=== PATIENT | male | born 1945 | race Caucasian/White ===

== ENCOUNTER → 2017-04-22 | Outpatient (CLI) | payer MEDICARE ==
[2017-04-22 10:41] LABS: ALBUMIN 3.9 GM/DL (3.2-5.2); ALBUMIN/GLOBULIN RATIO 1.18 (1.00-1.93); BILIRUBIN,TOTAL 0.5 MG/DL (0.2-1.0); CREATININE FOR GFR 1.32 MG/DL (0.70-1.30); GLOMERULAR FILTRATION RATE 57.3 (>49); TOTAL PROTEIN 7.2 GM/DL (6.4-8.2)
== END ==
LOC: M LAB 09:24
PROVIDERS: ATTEND Emergency Medicine
DX: I10 Essential (primary) hypertension (principal); R73.01 Impaired fasting glucose

== ENCOUNTER 2017-09-09 13:01 | Emergency (ER) | payer MEDICARE ==
[~2017-09-09] VITALS: Ht 172.7 cm; Wt 86.4 kg
[2017-09-09] MEDS ORDERED: FENO134C (13:14)
[2017-09-09] MEDS ORDERED: CARV6.25 (13:14)
[2017-09-09] MEDS ORDERED: TAMSULOSIN (13:14)
[2017-09-09] MEDS ORDERED: ATOR80TA59 (13:14)
[2017-09-09] MEDS ORDERED: SPIR25TA2 (13:14)
[2017-09-09] MEDS ORDERED: LISI-538 (13:14)
[2017-09-09] MEDS ORDERED: NS 500 ML IV ONE (13:45)
[2017-09-09 15:34] VITALS: BP 120/60
== END 2017-09-09 15:35 | disposition home or self-care (01) ==
LOC: M ED 13:01
DX: N13.9 Obstructive and reflux uropathy, unspecified (principal); I10 Essential (primary) hypertension; E78.5 Hyperlipidemia, unspecified; F17.210 Nicotine dependence, cigarettes, uncomplicated; Z79.899 Other long term (current) drug therapy; Z88.5 Allergy status to narcotic agent

== ENCOUNTER → 2017-09-17 | Outpatient (REF) | payer MEDICARE ==
[~2017-09-17] MED LIST: ATOR80TA59; CARV6.25; FENO134C; LISI-538; SPIR25TA2; TAMSULOSIN
== END ==
LOC: M SMT 16:59
PROVIDERS: ATTEND Nurse Practitioner Family
DX: R33.9 Retention of urine, unspecified (principal); R30.0 Dysuria
CPT/HCPCS: 51798; 81001; 87086; G0463

== ENCOUNTER → 2017-10-13 | Outpatient (REF) | payer MEDICARE | LOC: M SMT 13:06 | PROVIDERS: ATTEND Nurse Practitioner Family | DX: R33.9 Retention of urine, unspecified (principal); R39.12 Poor urinary stream; R30.0 Dysuria ==

== ENCOUNTER → 2018-01-26 | Outpatient (CLI) | payer MEDICARE ==
[2018-01-26 10:13] LABS: ESTIMATED AVERAGE GLUCOSE 134 MG/DL (60-110); HEMOGLOBIN A1c 6.3 %
[2018-01-26 10:17] LABS: ALBUMIN 3.9 GM/DL (3.2-5.2); ALKALINE PHOSPHATASE 48 U/L (45-117); ALT/SGPT 24 U/L (12-78); ANION GAP 6 MEQ/L (8-16); AST/SGOT 13 U/L (7-37); BILIRUBIN,TOTAL 0.6 MG/DL (0.2-1.0); BLOOD UREA NITROGEN 35 MG/DL (7-18); CALCIUM LEVEL 8.8 MG/DL (8.8-10.2); CARBON DIOXIDE LEVEL 27 MEQ/L (21-32); CHLORIDE LEVEL 106 MEQ/L (98-107); CHOLESTEROL LEVEL 132 MG/DL (<200); CHOLESTEROL RISK RATIO 3.771 (<5); CREATININE FOR GFR 1.55 MG/DL (0.70-1.30); GLOMERULAR FILTRATION RATE 47.4 (>42); GLUCOSE, FASTING 107 MG/DL (70-100); HDL CHOLESTEROL 35 MG/DL (>40); LDL CHOLESTEROL 65.8 MG/DL (<100); NON-HDL-C 97 MG/DL; PSA SCREENING 0.27 NG/ML (< 4.0); SODIUM LEVEL 139 MEQ/L (136-145); TOTAL PROTEIN 6.9 GM/DL (6.4-8.2); TRIGLYCERIDES LEVEL 156 MG/DL (<150)
[2018-01-26 10:20] LABS: POTASSIUM SERUM 5.3 MEQ/L (3.5-5.1)
== END ==
LOC: M LAB 08:58
DX: I10 Essential (primary) hypertension (principal); E78.2 Mixed hyperlipidemia; N40.1 Benign prostatic hyperplasia with lower urinary tract symptoms; R73.01 Impaired fasting glucose
CPT/HCPCS: 80053

== ENCOUNTER → 2018-08-10 | Outpatient (CLI) | payer MEDICARE ==
[2018-08-10 09:56] LABS: ALBUMIN 3.8 GM/DL (3.2-5.2); ALBUMIN/GLOBULIN RATIO 1.19 (1.00-1.93); ALKALINE PHOSPHATASE 42 U/L (45-117); ALT/SGPT 24 U/L (12-78); ANION GAP 6 MEQ/L (8-16); AST/SGOT 16 U/L (7-37); BILIRUBIN,TOTAL 0.5 MG/DL (0.2-1.0); BLOOD UREA NITROGEN 28 MG/DL (7-18); CALCIUM LEVEL 9.5 MG/DL (8.8-10.2); CARBON DIOXIDE LEVEL 25 MEQ/L (21-32); CHLORIDE LEVEL 108 MEQ/L (98-107); CHOLESTEROL LEVEL 131 MG/DL (<200); CREATININE FOR GFR 1.34 MG/DL (0.70-1.30); GLOMERULAR FILTRATION RATE 55.9 (>42); GLUCOSE, FASTING 109 MG/DL (70-100); HDL CHOLESTEROL 37 MG/DL (>40); LDL CHOLESTEROL 61 MG/DL (<100); NON-HDL-C 94 MG/DL; POTASSIUM SERUM 4.7 MEQ/L (3.5-5.1); SODIUM LEVEL 139 MEQ/L (136-145); TRIGLYCERIDES LEVEL 166 MG/DL (<150)
[2018-08-10 10:08] LABS: ESTIMATED AVERAGE GLUCOSE 123 MG/DL (60-110); HEMOGLOBIN A1c 5.9 %
== END ==
LOC: M LAB 08:53
DX: I10 Essential (primary) hypertension (principal); R73.9 Hyperglycemia, unspecified; E78.2 Mixed hyperlipidemia
CPT/HCPCS: 80053

== ENCOUNTER → 2019-02-09 | Outpatient (CLI) | payer MEDICARE ==
[~2019-02-09] MED LIST changes: +SPIR-10; -SPIR25TA2
[2019-02-09 10:32] LABS: BILIRUBIN,TOTAL 0.5 MG/DL (0.2-1.0); CALCIUM LEVEL 9.4 MG/DL (8.8-10.2); CHOLESTEROL RISK RATIO 3.611 (<5); CREATININE FOR GFR 1.64 MG/DL (0.70-1.30); GLOMERULAR FILTRATION RATE 44.3 (>42); POTASSIUM SERUM 4.9 MEQ/L (3.5-5.1)
[2019-02-09 10:34] LABS: HEMOGLOBIN A1c 6.2 %
== END ==
LOC: M LAB 09:10
PROVIDERS: ATTEND Physician Assistant Medical
DX: I10 Essential (primary) hypertension (principal); E78.2 Mixed hyperlipidemia; N40.1 Benign prostatic hyperplasia with lower urinary tract symptoms; R73.01 Impaired fasting glucose
CPT/HCPCS: 36415; 80053; 80061; 83036; G0103

== ENCOUNTER → 2019-05-30 | Outpatient (CLI) | payer MEDICARE ==
[2019-05-30 09:25] LABS: BASO # 0.1 10^3/uL (0.0-0.2); BASO % 0.7 % (0.0-1.0); EOS # 0.7 10^3/uL (0.0-0.50); EOS % 9.7 % (0.0-3.0); HEMOGLOBIN 12.3 g/dl (13.5-17.5); LYMPH # 1.5 10^3/uL (1.5-4.5); LYMPH % 22.7 % (24.0-44.0); MEAN CORPUSCULAR HEMOGLOBIN 32.3 pg (27.0-33.0); MEAN CORPUSCULAR HGB CONC 33.2 g/dl (32.0-36.5); MEAN CORPUSCULAR VOLUME 97.1 fl (80.0-96.0); MONO # 0.7 10^3/uL (0.0-0.8); NEUTROPHILS # 3.8 10^3/uL (1.8-7.7); NEUTROPHILS % 56.3 % (36.0-66.0); PLATELET COUNT, AUTOMATED 258 10^3/uL (150-450); RED BLOOD COUNT 3.81 10^6/uL (4.30-6.10); WHITE BLOOD COUNT 6.8 10^3/uL (4.0-10.0)
[2019-05-30 09:50] LABS: CALCIUM LEVEL 9.1 MG/DL (8.8-10.2); CREATININE FOR GFR 1.36 MG/DL (0.70-1.30); GLOMERULAR FILTRATION RATE 54.8 (>42); POTASSIUM SERUM 4.3 MEQ/L (3.5-5.1)
== END ==
LOC: M LAB 08:33
PROVIDERS: ATTEND Internal Medicine Cardiovascular Disease
DX: I25.10 Atherosclerotic heart disease of native coronary artery without angina pectoris (principal); R94.39 Abnormal result of other cardiovascular function study

== ENCOUNTER → 2019-06-29 | Outpatient (REF) | payer MEDICARE ==
[2019-06-29 18:30] LABS: INR 1.88; PROTHROMBIN TIME 21.4 SECONDS (11.8-14.0)
== END ==
LOC: M SHH 15:58
PROVIDERS: ATTEND Physician Assistant Surgical
DX: I25.10 Atherosclerotic heart disease of native coronary artery without angina pectoris (principal)

== ENCOUNTER → 2019-07-11 | Outpatient (CLI) | payer MEDICARE ==
[2019-07-11 11:41] LABS: INR 1.61; PROTHROMBIN TIME 18.9 SECONDS (11.8-14.0)
== END ==
LOC: M LAB 10:41
PROVIDERS: ATTEND Physician Assistant Surgical
DX: I48.0 Paroxysmal atrial fibrillation (principal)

== ENCOUNTER → 2019-07-27 | Outpatient (REF) | payer MEDICARE ==
[2019-07-27 13:41] LABS: HEMATOCRIT 29.5 % (42.0-52.0); HEMOGLOBIN 9.8 g/dl (13.5-17.5); MEAN CORPUSCULAR HEMOGLOBIN 32.1 pg (27.0-33.0); MEAN CORPUSCULAR HGB CONC 33.2 g/dl (32.0-36.5); MEAN CORPUSCULAR VOLUME 96.7 fl (80.0-96.0); PLATELET COUNT, AUTOMATED 303 10^3/uL (150-450); RED BLOOD COUNT 3.05 10^6/uL (4.30-6.10)
[2019-07-27 14:16] LABS: ALBUMIN 2.9 GM/DL (3.2-5.2); ALT/SGPT 26 U/L (12-78); BILIRUBIN,TOTAL 0.4 MG/DL (0.2-1.0); BLOOD UREA NITROGEN 24 MG/DL (7-18); CALCIUM LEVEL 8.4 MG/DL (8.8-10.2); CARBON DIOXIDE LEVEL 25 MEQ/L (21-32); CHLORIDE LEVEL 104 MEQ/L (98-107); CREATININE FOR GFR 1.02 MG/DL (0.70-1.30); GLOMERULAR FILTRATION RATE > 60.0 (>42); GLUCOSE, FASTING 95 MG/DL (70-100); MAGNESIUM LEVEL 2.2 MG/DL (1.8-2.4); POTASSIUM SERUM 4.4 MEQ/L (3.5-5.1); SODIUM LEVEL 138 MEQ/L (136-145); THYROID STIMULATING HORMONE 0.937 uIU/ML (0.358-3.740); TOTAL PROTEIN 6.3 GM/DL (6.4-8.2)
== END ==
LOC: M SHH 13:28
PROVIDERS: ATTEND Physician Assistant
DX: I25.10 Atherosclerotic heart disease of native coronary artery without angina pectoris (principal); I48.0 Paroxysmal atrial fibrillation; Z95.5 Presence of coronary angioplasty implant and graft

== ENCOUNTER → 2019-07-27 | Outpatient (REF) | payer MEDICARE ==
[2019-07-27 13:52] LABS: INR 2.55; PROTHROMBIN TIME 27.3 SECONDS (11.8-14.0)
== END ==
LOC: M SHH 13:26
PROVIDERS: ATTEND Physician Assistant
DX: Z95.5 Presence of coronary angioplasty implant and graft (principal)

== ENCOUNTER → 2019-08-23 | Outpatient (REF) | payer MEDICARE ==
[2019-08-23 13:43] LABS: CALCIUM LEVEL 8.7 MG/DL (8.8-10.2); CREATININE FOR GFR 1.28 MG/DL (0.70-1.30); GLOMERULAR FILTRATION RATE 58.8 (>42); POTASSIUM SERUM 3.9 MEQ/L (3.5-5.1)
== END ==
LOC: M LABDRWAD 12:09
PROVIDERS: ATTEND Physician Assistant
DX: I50.32 Chronic diastolic (congestive) heart failure (principal)

== ENCOUNTER → 2019-09-12 | Outpatient (REF) | payer MEDICARE ==
[2019-09-12 13:35] LABS: INR 2.63
== END ==
LOC: M LABDRWAD 12:27
PROVIDERS: ATTEND Physician Assistant
DX: Z79.01 Long term (current) use of anticoagulants (principal)

== ENCOUNTER → 2019-09-12 | Outpatient (REF) | payer MEDICARE ==
[2019-09-12 13:18] LABS: HEMATOCRIT 33.7 % (42.0-52.0); HEMOGLOBIN 10.8 g/dl (13.5-17.5); MEAN CORPUSCULAR HEMOGLOBIN 30.9 pg (27.0-33.0); MEAN CORPUSCULAR VOLUME 96.6 fl (80.0-96.0); PLATELET COUNT, AUTOMATED 224 10^3/uL (150-450); RED BLOOD COUNT 3.49 10^6/uL (4.30-6.10); WHITE BLOOD COUNT 7.3 10^3/uL (4.0-10.0)
== END ==
LOC: M LABDRWAD 12:26
PROVIDERS: ATTEND Physician Assistant
DX: I25.10 Atherosclerotic heart disease of native coronary artery without angina pectoris (principal); Z79.01 Long term (current) use of anticoagulants

== ENCOUNTER → 2019-10-05 | Outpatient (REF) | payer MEDICARE ==
[2019-10-05 13:00] LABS: INR 1.8; PROTHROMBIN TIME 20.6 SECONDS (11.8-14.0)
== END ==
LOC: M LABDRWAD 12:21
PROVIDERS: ATTEND Physician Assistant
DX: I48.0 Paroxysmal atrial fibrillation (principal)

== ENCOUNTER → 2019-11-07 | Outpatient (REF) | payer MEDICARE ==
[2019-11-07 13:12] LABS: HEMATOCRIT 39.4 % (42.0-52.0); HEMOGLOBIN 12.3 g/dl (13.5-17.5); MEAN CORPUSCULAR HEMOGLOBIN 29.7 pg (27.0-33.0); MEAN CORPUSCULAR HGB CONC 31.2 g/dl (32.0-36.5); MEAN CORPUSCULAR VOLUME 95.2 fl (80.0-96.0); PLATELET COUNT, AUTOMATED 228 10^3/uL (150-450); RED BLOOD COUNT 4.14 10^6/uL (4.30-6.10); WHITE BLOOD COUNT 8.7 10^3/uL (4.0-10.0)
== END ==
LOC: M LABDRWAD 12:50
PROVIDERS: ATTEND Physician Assistant
DX: I48.0 Paroxysmal atrial fibrillation (principal)

== ENCOUNTER → 2020-04-04 | Outpatient (REF) | payer MEDICARE ==
[~2020-04-04] MED LIST changes: -LISI-538; +LISI20TA33
[2020-04-04 13:24] LABS: HEMATOCRIT 39.6 % (42.0-52.0); HEMOGLOBIN 13.2 g/dl (13.5-17.5); MEAN CORPUSCULAR HGB CONC 33.3 g/dl (32.0-36.5); MEAN CORPUSCULAR VOLUME 96.1 fl (80.0-96.0); PLATELET COUNT, AUTOMATED 209 10^3/uL (150-450); RED BLOOD COUNT 4.12 10^6/uL (4.30-6.10); WHITE BLOOD COUNT 8.5 10^3/uL (4.0-10.0)
[2020-04-04 13:45] LABS: ALBUMIN 3.5 GM/DL (3.2-5.2); BILIRUBIN,TOTAL 1.2 MG/DL (0.2-1.0); CALCIUM LEVEL 8.6 MG/DL (8.8-10.2); CHOLESTEROL RISK RATIO 3.558 (<5); CREATININE FOR GFR 1.47 MG/DL (0.70-1.30); GLOMERULAR FILTRATION RATE 50.1 (>42); MAGNESIUM LEVEL 2.3 MG/DL (1.8-2.4); POTASSIUM SERUM 4.8 MEQ/L (3.5-5.1); THYROID STIMULATING HORMONE 0.304 uIU/ML (0.358-3.740); TOTAL PROTEIN 6.6 GM/DL (6.4-8.2)
== END ==
LOC: M LABDRWAD 13:07
PROVIDERS: ATTEND Physician Assistant
DX: I25.10 Atherosclerotic heart disease of native coronary artery without angina pectoris (principal); I48.0 Paroxysmal atrial fibrillation; E78.00 Pure hypercholesterolemia, unspecified

== ENCOUNTER → 2020-04-04 | Outpatient (CLI) | payer MEDICARE ==
--- NOTE | 2020-04-04 16:12 | REP ---
CHEST, TWO VIEWS: No comparison. Two views of the chest are performed. There is no acute infiltrate or pulmonary edema. The heart is normal in size. There is tortuosity of the thoracic aorta. Multiple sternal wires and mediastinal clips are present. IMPRESSION: No active pulmonary disease. Electronically Signed by Tae Gandhi MD 04/04/2020 04:49 P
== END ==
LOC: M ADAMS 09:01
PROVIDERS: ATTEND Physician Assistant
DX: I48.0 Paroxysmal atrial fibrillation (principal); I25.110 Atherosclerotic heart disease of native coronary artery with unstable angina pectoris; E78.00 Pure hypercholesterolemia, unspecified

== ENCOUNTER → 2020-04-06 | Outpatient (REF) | payer MEDICARE ==
[~2020-04-06] MED LIST changes: +LISI-538; -LISI20TA33
[2020-04-06 18:16] LABS: THYROID STIMULATING HORMONE 0.272 uIU/ML (0.358-3.740); THYROXINE (T4) 9.5 UG/DL (4.5-12.0)
== END ==
LOC: M LABDRWAD 16:55
PROVIDERS: ATTEND Physician Assistant
DX: R94.6 Abnormal results of thyroid function studies (principal)

== ENCOUNTER → 2020-06-11 | Outpatient (REF) | payer MEDICARE ==
[2020-07-16 09:34] LABS: THYROGLOBULIN ANTIBODY < 15.0 U/ML (<60.0); THYROID PEROXIDASE ANTIBODY 41.5 U/ML (<60.0)
[2020-08-16 08:05] LABS: FREE T4 SEE SEPARATE REPORT NG/DL (0.76-1.46); THYROID STIMULATING HORMONE SEE SEPARATE REPORT uIU/ML (0.358-3.740)
== END ==
LOC: M LABDRWAD 07:30
PROVIDERS: ATTEND Internal Medicine Endocrinology, Diabetes & Metabolism
DX: E05.00 Thyrotoxicosis with diffuse goiter without thyrotoxic crisis or storm (principal)

== ENCOUNTER → 2020-10-10 | Outpatient (REF) | payer MEDICARE ==
[2020-10-10 14:11] LABS: FREE T4 1.47 NG/DL (0.76-1.46); THYROID STIMULATING HORMONE 0.414 uIU/ML (0.358-3.740)
== END ==
LOC: M LABDRWAD 12:22
PROVIDERS: ATTEND Internal Medicine Endocrinology, Diabetes & Metabolism
DX: E05.00 Thyrotoxicosis with diffuse goiter without thyrotoxic crisis or storm (principal)

== ENCOUNTER → 2020-10-10 | Outpatient (CLI) | payer MEDICARE ==
--- NOTE | 2020-10-10 11:07 | REP ---
INDICATION: PAROXYSMAL ARTRAL FIB COMPARISON: 04/04/2020 TECHNIQUE: PA and lateral. FINDINGS: Mediastinum and cardiac silhouette stable with evidence for prior sternotomy again noted. Tortuous thoracic aorta again identified. Lung hensley demonstrate chronic change without acute consolidation, effusion, or pneumothorax. Skeletal structures intact. IMPRESSION: Stable examination. No acute cardiopulmonary process appreciated. <Electronically signed by Julito Leal > 10/10/20 [id number]
[2020-10-10 13:02] LABS: HEMATOCRIT 42.4 % (42.0-52.0); HEMOGLOBIN 13.7 g/dl (13.5-17.5); MEAN CORPUSCULAR HEMOGLOBIN 31.1 pg (27.0-33.0); MEAN CORPUSCULAR HGB CONC 32.3 g/dl (32.0-36.5); MEAN CORPUSCULAR VOLUME 96.4 fl (80.0-96.0); PLATELET COUNT, AUTOMATED 210 10^3/uL (150-450); WHITE BLOOD COUNT 7.2 10^3/uL (4.0-10.0)
[2020-10-10 13:57] LABS: ALBUMIN 3.4 GM/DL (3.2-5.2); BILIRUBIN,TOTAL 1.1 MG/DL (0.2-1.0); CALCIUM LEVEL 9.1 MG/DL (8.8-10.2); CREATININE FOR GFR 1.47 MG/DL (0.70-1.30); MAGNESIUM LEVEL 2.3 MG/DL (1.8-2.4); POTASSIUM SERUM 3.9 MEQ/L (3.5-5.1); TOTAL PROTEIN 6.9 GM/DL (6.4-8.2)
== END ==
LOC: M ADAMS 10:45
PROVIDERS: ATTEND Physician Assistant
DX: I48.0 Paroxysmal atrial fibrillation (principal); E05.00 Thyrotoxicosis with diffuse goiter without thyrotoxic crisis or storm

== ENCOUNTER → 2021-01-21 | Outpatient (REF) | payer MEDICARE ==
[~2021-01-21] MED LIST changes: -LISI-538; +LISI20TA33
[2021-01-21 13:22] LABS: HEMOGLOBIN 13.8 g/dl (13.5-17.5); MEAN CORPUSCULAR HEMOGLOBIN 30.9 pg (27.0-33.0); MEAN CORPUSCULAR HGB CONC 32.1 g/dl (32.0-36.5); MEAN CORPUSCULAR VOLUME 96.2 fl (80.0-96.0); PLATELET COUNT, AUTOMATED 203 10^3/uL (150-450); RED BLOOD COUNT 4.47 10^6/uL (4.30-6.10); WHITE BLOOD COUNT 9.5 10^3/uL (4.0-10.0)
[2021-01-21 13:49] LABS: MALB URINE SIEMENS 32.4 MG/L; MAU/CREAT RATIO 12.1 MCG/MG (0.0-30.0)
[2021-01-21 14:01] LABS: ALT/SGPT 38 U/L (12-78); BILIRUBIN,TOTAL 0.7 MG/DL (0.2-1.0); BLOOD UREA NITROGEN 39 MG/DL (7-18); CALCIUM LEVEL 8.9 MG/DL (8.8-10.2); CARBON DIOXIDE LEVEL 26 MEQ/L (21-32); CHLORIDE LEVEL 106 MEQ/L (98-107); CHOLESTEROL LEVEL 168 MG/DL (<200); CHOLESTEROL RISK RATIO 3.111 (<5); CREATININE FOR GFR 1.23 MG/DL (0.70-1.30); GLOMERULAR FILTRATION RATE > 60.0 (>42); GLUCOSE, FASTING 92 MG/DL (70-100); HDL CHOLESTEROL 54 MG/DL (>40); LDL CHOLESTEROL 86 MG/DL (<100); NON-HDL-C 114 MG/DL; POTASSIUM SERUM 4.2 MEQ/L (3.5-5.1); SODIUM LEVEL 139 MEQ/L (136-145); TOTAL PROTEIN 6.1 GM/DL (6.4-8.2); TRIGLYCERIDES LEVEL 139 MG/DL (<150)
[2021-01-21 14:08] LABS: EOSINOPHILS 1 % (0-3); LYMPHOCYTES 12 % (16-44); METAMYELOCYTES 1 % (0-0); MONOCYTES 7 % (0-5); NEUTROPHILS 79 % (28-66); PLATELET ESTIMATE NORMAL (NORMAL)
[2021-01-21 14:26] LABS: HEMOGLOBIN A1c 6.1 %
== END ==
LOC: M LABDRWAD 12:34
PROVIDERS: ATTEND Nurse Practitioner Family
DX: I10 Essential (primary) hypertension (principal)

== ENCOUNTER → 2021-02-18 | Outpatient (REF) | payer MEDICARE ==
[2021-02-18 14:25] LABS: FREE T4 1.25 NG/DL (0.76-1.46); THYROID STIMULATING HORMONE 0.487 uIU/ML (0.358-3.740)
== END ==
LOC: M LABDRWAD 12:10
PROVIDERS: ATTEND Nurse Practitioner Family
DX: E05.00 Thyrotoxicosis with diffuse goiter without thyrotoxic crisis or storm (principal)

== ENCOUNTER → 2021-04-10 | Outpatient (CLI) | payer MEDICARE ==
--- NOTE | 2021-04-10 09:57 | REP ---
INDICATION: PAROXYSMAL ATRAIL FIBRILLATION COMPARISON: 10/10/2020 TECHNIQUE: PA and lateral. FINDINGS: The mediastinum and cardiac silhouette are stable. Prior sternotomy and CABG again noted. No cardiomegaly. The lung hensley are clear and without acute consolidation, effusion, or pneumothorax. The skeletal structures are intact and normal. IMPRESSION: No acute cardiopulmonary process. <Electronically signed by Julito Leal > 04/10/21 0953
== END ==
LOC: M ADAMS 09:34
PROVIDERS: ATTEND Physician Assistant
DX: I48.0 Paroxysmal atrial fibrillation (principal); I11.9 Hypertensive heart disease without heart failure; E78.00 Pure hypercholesterolemia, unspecified; I25.10 Atherosclerotic heart disease of native coronary artery without angina pectoris; Z95.1 Presence of aortocoronary bypass graft

== ENCOUNTER → 2021-04-10 | Outpatient (CLI) | payer MEDICARE ==
[2021-04-10 12:52] LABS: HEMATOCRIT 39.8 % (42.0-52.0); HEMOGLOBIN 12.8 g/dl (13.5-17.5); MEAN CORPUSCULAR HEMOGLOBIN 31.7 pg (27.0-33.0); MEAN CORPUSCULAR HGB CONC 32.2 g/dl (32.0-36.5); MEAN CORPUSCULAR VOLUME 98.5 fl (80.0-96.0); PLATELET COUNT, AUTOMATED 236 10^3/uL (150-450); RED BLOOD COUNT 4.04 10^6/uL (4.30-6.10); WHITE BLOOD COUNT 8.5 10^3/uL (4.0-10.0)
[2021-04-10 13:17] LABS: ALBUMIN 3.3 GM/DL (3.2-5.2); BILIRUBIN,TOTAL 0.9 MG/DL (0.2-1.0); CALCIUM LEVEL 9.1 MG/DL (8.8-10.2); CHOLESTEROL RISK RATIO 3.425 (<5); CREATININE FOR GFR 1.28 MG/DL (0.70-1.30); GLOMERULAR FILTRATION RATE 58.6 (>42); MAGNESIUM LEVEL 2.1 MG/DL (1.8-2.4); POTASSIUM SERUM 4.1 MEQ/L (3.5-5.1); THYROID STIMULATING HORMONE 0.5 uIU/ML (0.358-3.740); TOTAL PROTEIN 6.5 GM/DL (6.4-8.2)
== END ==
LOC: M LABDRWAD 09:30
PROVIDERS: ATTEND Physician Assistant
DX: I48.0 Paroxysmal atrial fibrillation (principal); I11.9 Hypertensive heart disease without heart failure; E78.00 Pure hypercholesterolemia, unspecified; I25.10 Atherosclerotic heart disease of native coronary artery without angina pectoris

== ENCOUNTER → 2021-10-16 | Outpatient (CLI) | payer MEDICARE ==
[2021-10-16 17:20] LABS: ALBUMIN 3.1 GM/DL (3.2-5.2); BILIRUBIN,TOTAL 0.8 MG/DL (0.2-1.0); CALCIUM LEVEL 8.4 MG/DL (8.8-10.2); CREATININE FOR GFR 1.55 MG/DL (0.70-1.30); GLOMERULAR FILTRATION RATE 46.9 (>42); MAGNESIUM LEVEL 2.2 MG/DL (1.8-2.4); THYROID STIMULATING HORMONE 0.495 uIU/ML (0.358-3.740); TOTAL PROTEIN 6.6 GM/DL (6.4-8.2)
== END ==
LOC: M LABDRWAD 13:49
PROVIDERS: ATTEND Physician Assistant
DX: I25.10 Atherosclerotic heart disease of native coronary artery without angina pectoris (principal); I48.0 Paroxysmal atrial fibrillation

== ENCOUNTER → 2021-10-16 | Outpatient (CLI) | payer MEDICARE | LOC: M ADAMS 13:46 | PROVIDERS: ATTEND Physician Assistant | DX: I48.0 Paroxysmal atrial fibrillation (principal); I25.10 Atherosclerotic heart disease of native coronary artery without angina pectoris ==

== ENCOUNTER → 2022-02-13 | Outpatient (REF) | payer MEDICARE ==
[~2022-02-13] MED LIST changes: -FENO134C; +FENO134C16
[2022-02-13 14:01] LABS: ALBUMIN 3.3 GM/DL (3.2-5.2); BILIRUBIN,TOTAL 0.9 MG/DL (0.2-1.0); CALCIUM LEVEL 8.7 MG/DL (8.8-10.2); CHOLESTEROL RISK RATIO 3.843 (<5); CREATININE FOR GFR 1.4 MG/DL (0.70-1.30); GLOMERULAR FILTRATION RATE 52.7 (>42); TOTAL PROTEIN 6.2 GM/DL (6.4-8.2)
[2022-02-13 17:22] LABS: HEMOGLOBIN A1c 5.9 %
== END ==
LOC: M LABDRWAD 12:13
PROVIDERS: ATTEND Nurse Practitioner Family
DX: I10 Essential (primary) hypertension (principal); R73.01 Impaired fasting glucose

== ENCOUNTER → 2022-04-29 | Outpatient (CLI) | payer MEDICARE ==
[2022-04-29 17:28] LABS: CALCIUM LEVEL 8.2 MG/DL (8.8-10.2); CREATININE FOR GFR 1.46 MG/DL (0.70-1.30); GLOMERULAR FILTRATION RATE 50.2 (>42); MAGNESIUM LEVEL 2.1 MG/DL (1.8-2.4); POTASSIUM SERUM 4.2 MEQ/L (3.5-5.1); THYROID STIMULATING HORMONE 0.583 uIU/ML (0.358-3.740)
== END ==
LOC: M ADAMS 13:51
PROVIDERS: ATTEND Physician Assistant
DX: I48.0 Paroxysmal atrial fibrillation (principal); R60.0 Localized edema

== ENCOUNTER → 2022-05-12 | Outpatient (CLI) | payer MEDICARE | LOC: M RAD 12:29 | PROVIDERS: ATTEND Physician Assistant | DX: I65.23 Occlusion and stenosis of bilateral carotid arteries (principal) ==

== ENCOUNTER → 2022-06-23 | Outpatient (REF) | payer MEDICARE ==
[2022-06-23 15:44] LABS: CALCIUM LEVEL 8.8 MG/DL (8.8-10.2); CREATININE FOR GFR 1.55 MG/DL (0.70-1.30); GLOMERULAR FILTRATION RATE 46.8 (>42); MAGNESIUM LEVEL 2.5 MG/DL (1.8-2.4)
== END ==
LOC: M LABDRWAD 12:40
PROVIDERS: ATTEND Physician Assistant
DX: I48.0 Paroxysmal atrial fibrillation (principal); R60.0 Localized edema

== ENCOUNTER → 2022-08-18 | Outpatient (REF) | payer MEDICARE ==
[2022-08-18 13:10] LABS: HEMATOCRIT 33.3 % (42.0-52.0); HEMOGLOBIN 11.1 g/dl (13.5-17.5); MEAN CORPUSCULAR HEMOGLOBIN 31.9 pg (27.0-33.0); MEAN CORPUSCULAR HGB CONC 33.3 g/dl (32.0-36.5); MEAN CORPUSCULAR VOLUME 95.7 fl (80.0-96.0); PLATELET COUNT, AUTOMATED 271 10^3/uL (150-450); RED BLOOD COUNT 3.48 10^6/uL (4.30-6.10); WHITE BLOOD COUNT 7.3 10^3/uL (4.0-10.0)
[2022-08-18 14:48] LABS: CALCIUM LEVEL 8.8 MG/DL (8.8-10.2); CREATININE FOR GFR 1.26 MG/DL (0.70-1.30); GLOMERULAR FILTRATION RATE 59.4 (>42); MAGNESIUM LEVEL 2.3 MG/DL (1.8-2.4); POTASSIUM SERUM 3.8 MEQ/L (3.5-5.1); THYROID STIMULATING HORMONE 0.308 uIU/ML (0.358-3.740)
== END ==
LOC: M LABDRWAD 12:24
PROVIDERS: ATTEND Physician Assistant
DX: I50.32 Chronic diastolic (congestive) heart failure (principal); I48.0 Paroxysmal atrial fibrillation; R53.82 Chronic fatigue, unspecified

== ENCOUNTER 2022-08-29 10:39 | Inpatient (IN) | payer MEDICARE ==
[~2022-08-29] VITALS: Ht 170.2 cm; Wt 95.2 kg
[~2022-08-29 10:39] MED LIST changes: -FENO134C16; +FENO134C20
[2022-08-29] MEDS ORDERED: NITR0.4S14 PO (10:51)
[2022-08-29] MEDS ORDERED: ELIQ5TAB PO (10:51)
[2022-08-29] MEDS ORDERED: ADV250INH INH (10:51)
[2022-08-29] MEDS ORDERED: ALBU8.5H PO (10:51)
[2022-08-29] MEDS ORDERED: AMIO200T37 PO (10:51)
[2022-08-29] MEDS ORDERED: TAMS1CAP17 PO (10:51)
[2022-08-29] MEDS ORDERED: FURO20TA2 PO ×2 (10:51→13:46)
[2022-08-29 12:05] LABS: BASO % 0.1 % (0.0-1.0); EOS # 0.1 10^3/uL (0.0-0.5); EOS % 0.3 % (0.0-3.0); HEMATOCRIT 37.8 % (42.0-52.0); HEMOGLOBIN 12.1 g/dl (13.5-17.5); LYMPH # 0.8 10^3/uL (1.5-5.0); LYMPH % 5.4 % (24.0-44.0); MEAN CORPUSCULAR VOLUME 96.9 fl (80.0-96.0); MONO # 1.5 10^3/uL (0.0-0.8); MONO % 10.2 % (2.0-8.0); NEUTROPHILS % 83.2 % (36.0-66.0); PLATELET COUNT, AUTOMATED 314 10^3/uL (150-450); WHITE BLOOD COUNT 14.5 10^3/uL (4.0-10.0)
[2022-08-29] MEDS ORDERED: IPRATROPIUM 0.5MG/ALBUTEROL 2.5MG INH SOL UD 3ML (DUONEB) NEB ONE (12:05)
[2022-08-29] MEDS ORDERED: dexameTHASONE 20MG/5ML VIAL (J1100 PER 1MG) IV ONE (12:05)
[2022-08-29] MEDS ORDERED: ONDANSETRON 4MG 2ML VIAL IV ONE (12:15)
[2022-08-29 12:46] LABS: ALBUMIN 2.9 GM/DL (3.2-5.2); BILIRUBIN,TOTAL 1.5 MG/DL (0.2-1.0); CALCIUM LEVEL 9.1 MG/DL (8.8-10.2); CREATININE FOR GFR 1.49 MG/DL (0.70-1.30); GLOMERULAR FILTRATION RATE 48.9 (>42); POTASSIUM SERUM 4.1 MEQ/L (3.5-5.1); TOTAL PROTEIN 7.1 GM/DL (6.4-8.2)
[2022-08-29 12:57] LABS: RSV AMPLIFICATION NEGATIVE (NEGATIVE)
[2022-08-29 12:59] LABS: CPK CREATINE PHOSPHOKINASE 51 U/L (39-308)
[2022-08-29] MEDS ORDERED: NS 500 ML IV ONE (13:00)
[2022-08-29] MEDS ORDERED: DOXYCYCLINE HYCLATE 100 MG in D5W MINI-BAG PLUS 100 ML IV ONE (13:00)
[2022-08-29] MEDS ORDERED: cefTRIAXone SOD 2 GM in D5W MINI-BAG PLUS 50 ML IV ONE (13:00)
[2022-08-29] MEDS ORDERED: VITMTA PO (13:46)
[2022-08-29] MEDS ORDERED: ATOR40TA75 PO (13:46)
[2022-08-29] MEDS ORDERED: OMEG10002 PO (13:46)
[2022-08-29] MEDS ORDERED: ALLE60TA69 PO (13:46)
[2022-08-29] MEDS ORDERED: ASPI81TA26 PO (13:46)
[2022-08-29] MEDS ORDERED: HOME MED LIST COMPLETE! XX SCH (13:50)
[2022-08-29] MEDS: LEVALBUTEROL 1.25 MG/0.5 ML CONCENTRATE NEB INH SCH ×3 (16:00→23:48)
[2022-08-29] MEDS: OMEGA-3 1000MG CAPSULE PO SCH (18:00)
[2022-08-29 18:46] LABS: CPK CREATINE PHOSPHOKINASE 45 U/L (39-308)
[2022-08-29 20:15] VITALS: BP 101/57
[2022-08-29] MEDS: TAMSULOSIN 0.4 MG CAP PO SCH (21:10)
[2022-08-29] MEDS: ATORVASTATIN 20 MG TAB PO SCH (21:10)
[2022-08-29] MEDS: DOXYCYCLINE HYCLATE 100MG TABLET PO SCH (21:10)
[2022-08-29] MEDS: APIXABAN 5 MG TAB (ELIQUIS) PO SCH (21:10)
[2022-08-30] VITALS (25 sets, daily range): BP systolic 93–118; BP diastolic 50–60; O2SAT 85–97
[2022-08-30 01:52] LABS: CPK CREATINE PHOSPHOKINASE 83 U/L (39-308)
[2022-08-30] MEDS: LEVALBUTEROL 1.25 MG/0.5 ML CONCENTRATE NEB INH SCH ×5 (04:11→19:50)
[2022-08-30 06:48] LABS: BASO % 0.1 % (0.0-1.0); HEMOGLOBIN 10.2 g/dl (13.5-17.5); LYMPH # 0.5 10^3/uL (1.5-5.0); MEAN CORPUSCULAR HEMOGLOBIN 31.3 pg (27.0-33.0); MEAN CORPUSCULAR HGB CONC 32.9 g/dl (32.0-36.5); MEAN CORPUSCULAR VOLUME 95.1 fl (80.0-96.0); MONO # 0.7 10^3/uL (0.0-0.8); MONO % 5.5 % (2.0-8.0); NEUTROPHILS # 10.5 10^3/uL (1.5-8.5); NEUTROPHILS % 89.6 % (36.0-66.0); PLATELET COUNT, AUTOMATED 253 10^3/uL (150-450); RED BLOOD COUNT 3.26 10^6/uL (4.30-6.10); WHITE BLOOD COUNT 11.8 10^3/uL (4.0-10.0)
[2022-08-30 07:13] LABS: CALCIUM LEVEL 8.8 MG/DL (8.8-10.2); CREATININE FOR GFR 1.28 MG/DL (0.70-1.30); GLOMERULAR FILTRATION RATE 58.3 (>42); POTASSIUM SERUM 4.2 MEQ/L (3.5-5.1)
[2022-08-30] MEDS ORDERED: AMIODARONE 200 MG TAB (PACERONE) PO SCH (09:00)
[2022-08-30] MEDS: APIXABAN 5 MG TAB (ELIQUIS) PO SCH ×2 (09:07→20:14)
[2022-08-30] MEDS: ASPIRIN 81MG ENTERIC TABLET PO SCH (09:07)
[2022-08-30] MEDS: MULTIVITAMINS/MINERALS THERAP 1 TAB PO SCH (09:07)
[2022-08-30] MEDS: FEXOFENADINE 60MG TAB PO SCH (09:07)
[2022-08-30] MEDS: cefTRIAXone SOD 2 GM in D5W MINI-BAG PLUS 50 ML IV SCH (09:08)
[2022-08-30] MEDS: DOXYCYCLINE HYCLATE 100MG TABLET PO SCH ×2 (09:08→20:14)
[2022-08-30] MEDS: MIDODRINE 5 MG TAB PO SCH ×3 (09:13→17:12)
[2022-08-30] MEDS: methylPREDNISolone 125MG 2ML VIAL IV SCH ×3 (09:51→21:08)
[2022-08-30] MEDS: guaiFENesin ER 600 MG TAB PO SCH ×2 (12:51→20:14)
[2022-08-30 13:15] LABS: ABG BASE EXCESS -3.4 (-2.0-2.0); ABG HCO3 20.8 MEQ/L (22.0-26.0); ABG O2 SATURATION 90.7 % (95.0-99.0); ABG PARTIAL PRESSURE CO2 34.6 mmHg (35.0-45.0); ABG PARTIAL PRESSURE O2 62.4 mmHg (75.0-100.0); ABG STANDARD HCO3 21.5 MEQ/L (22.0-26.0); ABG TOTAL CO2 21.9 MEQ/L (23.0-31.0); ABG pH (ARTERIAL) 7.397 UNITS (7.350-7.450)
[2022-08-30 13:16] LABS: INR 1.36; PARTIAL THROMBOPLASTIN TIME 29.3 SECONDS (24.8-34.2)
[2022-08-30 13:19] LABS: D-DIMER QUANT 722.62 ng/ml (<500)
[2022-08-30 13:34] LABS: ALBUMIN 2.6 GM/DL (3.2-5.2); BILIRUBIN,DIRECT 0.2 MG/DL (0.0-0.2); BILIRUBIN,TOTAL 0.5 MG/DL (0.2-1.0); C REACTIVE PROTEIN QUANTITATIV 13.2 MG/DL (0.00-0.30); TOTAL PROTEIN 6.5 GM/DL (6.4-8.2)
[2022-08-30] MEDS: OMEGA-3 1000MG CAPSULE PO SCH (17:12)
[2022-08-30] MEDS: ATORVASTATIN 20 MG TAB PO SCH (17:12)
[2022-08-30] MEDS: TAMSULOSIN 0.4 MG CAP PO SCH (17:13)
[2022-08-30] MEDS: BUDESONIDE 0.5 MG/2 ML INHALATION SUSPENSION INH SCH (19:50)
[2022-08-31] VITALS (26 sets, daily range): BP systolic 96–110; BP diastolic 56–66; O2SAT 84–94
[2022-08-31] MEDS: LEVALBUTEROL 1.25 MG/0.5 ML CONCENTRATE NEB INH PRN (02:24)
[2022-08-31] MEDS: methylPREDNISolone 125MG 2ML VIAL IV SCH ×4 (04:39→20:50)
[2022-08-31 06:49] LABS: BASO % 0.1 % (0.0-1.0); HEMATOCRIT 30.4 % (42.0-52.0); LYMPH # 0.4 10^3/uL (1.5-5.0); LYMPH % 1.9 % (24.0-44.0); MEAN CORPUSCULAR HEMOGLOBIN 31.5 pg (27.0-33.0); MEAN CORPUSCULAR HGB CONC 32.9 g/dl (32.0-36.5); MEAN CORPUSCULAR VOLUME 95.9 fl (80.0-96.0); MONO # 0.8 10^3/uL (0.0-0.8); MONO % 4.1 % (2.0-8.0); NEUTROPHILS # 19.1 10^3/uL (1.5-8.5); NEUTROPHILS % 92.5 % (36.0-66.0); PLATELET COUNT, AUTOMATED 283 10^3/uL (150-450); RED BLOOD COUNT 3.17 10^6/uL (4.30-6.10); WHITE BLOOD COUNT 20.7 10^3/uL (4.0-10.0)
[2022-08-31] MEDS: LEVALBUTEROL 1.25 MG/0.5 ML CONCENTRATE NEB INH SCH ×4 (07:23→19:23)
[2022-08-31] MEDS: BUDESONIDE 0.5 MG/2 ML INHALATION SUSPENSION INH SCH ×2 (07:23→19:22)
[2022-08-31 07:24] LABS: CALCIUM LEVEL 9.3 MG/DL (8.8-10.2); CREATININE FOR GFR 1.55 MG/DL (0.70-1.30); GLOMERULAR FILTRATION RATE 46.8 (>42); POTASSIUM SERUM 4.6 MEQ/L (3.5-5.1)
[2022-08-31] MEDS: TIOTROPIUM INHALER/CAPSULE (SPIRIVA) INH SCH (07:24)
[2022-08-31] MEDS: MIDODRINE 5 MG TAB PO SCH ×3 (07:52→16:07)
[2022-08-31] MEDS: FEXOFENADINE 60MG TAB PO SCH (08:50)
[2022-08-31] MEDS: DOXYCYCLINE HYCLATE 100MG TABLET PO SCH ×2 (08:51→20:47)
[2022-08-31] MEDS: cefTRIAXone SOD 2 GM in D5W MINI-BAG PLUS 50 ML IV SCH (08:51)
[2022-08-31] MEDS: MULTIVITAMINS/MINERALS THERAP 1 TAB PO SCH (08:51)
[2022-08-31] MEDS: guaiFENesin ER 600 MG TAB PO SCH ×2 (08:51→20:46)
[2022-08-31] MEDS: ASPIRIN 81MG ENTERIC TABLET PO SCH (08:51)
[2022-08-31] MEDS: APIXABAN 5 MG TAB (ELIQUIS) PO SCH ×2 (08:52→20:46)
[2022-08-31] MEDS ORDERED: MOM 30ML SUSPENSION UDC PO PRN (09:45)
[2022-08-31] MEDS: SENOKOT S TAB PO SCH ×2 (11:00→20:45)
[2022-08-31] MEDS: MIRALAX *UNIT DOSE* 17GM PACKET PO SCH ×2 (11:00→20:48)
[2022-08-31] MEDS: TAMSULOSIN 0.4 MG CAP PO SCH (18:07)
[2022-08-31] MEDS: OMEGA-3 1000MG CAPSULE PO SCH (18:07)
[2022-08-31] MEDS: ATORVASTATIN 20 MG TAB PO SCH (18:08)
[2022-09-01] VITALS (15 sets, daily range): BP systolic 106–134; BP diastolic 58–70; O2SAT 82–98
[2022-09-01] MEDS: methylPREDNISolone 125MG 2ML VIAL IV SCH ×3 (04:12→21:06)
[2022-09-01 06:04] LABS: BASO % 0.1 % (0.0-1.0); HEMATOCRIT 31.8 % (42.0-52.0); HEMOGLOBIN 10.1 g/dl (13.5-17.5); LYMPH # 0.4 10^3/uL (1.5-5.0); LYMPH % 2.1 % (24.0-44.0); MEAN CORPUSCULAR HEMOGLOBIN 30.8 pg (27.0-33.0); MEAN CORPUSCULAR HGB CONC 31.8 g/dl (32.0-36.5); MONO % 4.9 % (2.0-8.0); NEUTROPHILS # 17.8 10^3/uL (1.5-8.5); NEUTROPHILS % 91.2 % (36.0-66.0); PLATELET COUNT, AUTOMATED 286 10^3/uL (150-450); RED BLOOD COUNT 3.28 10^6/uL (4.30-6.10); WHITE BLOOD COUNT 19.5 10^3/uL (4.0-10.0)
[2022-09-01 06:33] LABS: CALCIUM LEVEL 8.9 MG/DL (8.8-10.2); CREATININE FOR GFR 1.5 MG/DL (0.70-1.30); GLOMERULAR FILTRATION RATE 48.6 (>42); POTASSIUM SERUM 4.4 MEQ/L (3.5-5.1)
[2022-09-01] MEDS: LEVALBUTEROL 1.25 MG/0.5 ML CONCENTRATE NEB INH PRN (06:57)
[2022-09-01] MEDS: TIOTROPIUM INHALER/CAPSULE (SPIRIVA) INH SCH (07:09)
[2022-09-01] MEDS: BUDESONIDE 0.5 MG/2 ML INHALATION SUSPENSION INH SCH ×2 (07:09→21:57)
[2022-09-01] MEDS: LEVALBUTEROL 1.25 MG/0.5 ML CONCENTRATE NEB INH SCH ×4 (07:10→21:57)
[2022-09-01] MEDS ORDERED: methylPREDNISolone 40MG 1ML VIAL IV SCH ×2 (08:05→10:00)
[2022-09-01] MEDS: MIRALAX *UNIT DOSE* 17GM PACKET PO SCH ×2 (08:49→21:00)
[2022-09-01] MEDS: cefTRIAXone SOD 2 GM in D5W MINI-BAG PLUS 50 ML IV SCH (08:49)
[2022-09-01] MEDS: MULTIVITAMINS/MINERALS THERAP 1 TAB PO SCH (08:50)
[2022-09-01] MEDS: APIXABAN 5 MG TAB (ELIQUIS) PO SCH ×2 (08:50→21:06)
[2022-09-01] MEDS: ASPIRIN 81MG ENTERIC TABLET PO SCH (08:50)
[2022-09-01] MEDS: SENOKOT S TAB PO SCH ×2 (08:50→21:00)
[2022-09-01] MEDS: FEXOFENADINE 60MG TAB PO SCH (08:50)
[2022-09-01] MEDS: MIDODRINE 5 MG TAB PO SCH ×3 (08:50→17:29)
[2022-09-01] MEDS: guaiFENesin ER 600 MG TAB PO SCH ×2 (08:50→21:03)
[2022-09-01] MEDS: DOXYCYCLINE HYCLATE 100MG TABLET PO SCH ×2 (08:50→21:03)
[2022-09-01] MEDS ORDERED: FUROSEMIDE 20MG/2ML VIAL (J1940) IV ONE (09:00)
[2022-09-01 09:17] LABS: ABG BASE EXCESS -3.9 (-2.0-2.0); ABG HCO3 20.5 MEQ/L (22.0-26.0); ABG O2 SATURATION 91.4 % (95.0-99.0); ABG PARTIAL PRESSURE CO2 34.7 mmHg (35.0-45.0); ABG PARTIAL PRESSURE O2 65.4 mmHg (75.0-100.0); ABG STANDARD HCO3 21.2 MEQ/L (22.0-26.0); ABG TOTAL CO2 21.6 MEQ/L (23.0-31.0); ABG pH (ARTERIAL) 7.389 UNITS (7.350-7.450)
[2022-09-01 09:29] LABS: CPK CREATINE PHOSPHOKINASE 42 U/L (39-308)
[2022-09-01 13:39] LABS: COMPLEMENT C3 126 MG/DL (90-180); COMPLEMENT C4 26 MG/DL (10-40)
[2022-09-01 16:25] LABS: APPEARANCE, URINE MANUAL CLEAR (CLEAR); COLOR, URINE MANUAL LT YELLOW (YELLOW)
[2022-09-01 16:27] LABS: BILIRUBIN, URINE MANUAL NEGATIVE (NEGATIVE); BLOOD URINE MANUAL NEGATIVE (NEGATIVE); GLUCOSE, URINE (UA) MANUAL 3+(500 MG/DL) mg/dL (NEGATIVE); KETONE, URINE MANUAL NEGATIVE (NEGATIVE); LEUKOCYTE ESTERASE, URINE MAN NEGATIVE (NEGATIVE); NITRITE, URINE MANUAL NEGATIVE (NEGATIVE); PROTEIN, URINE MANUAL NEGATIVE (NEGATIVE); UROBILINOGEN, URINE MANUAL NORMAL (NORMAL)
[2022-09-01 17:13] LABS: CREATININE,RANDOM URINE 68.1 MG/DL; TOTAL PROTEIN,RANDOM URINE 20.3 MG/DL (0.0-12.0)
[2022-09-01] MEDS: ATORVASTATIN 20 MG TAB PO SCH (17:28)
[2022-09-01] MEDS: OMEGA-3 1000MG CAPSULE PO SCH (17:29)
[2022-09-02] VITALS (14 sets, daily range): BP systolic 110–142; BP diastolic 56–67; O2SAT 92
[2022-09-02] MEDS: methylPREDNISolone 125MG 2ML VIAL IV SCH ×4 (02:05→20:35)
[2022-09-02 05:18] LABS: BASO % 0.1 % (0.0-1.0); HEMATOCRIT 30.4 % (42.0-52.0); LYMPH # 0.4 10^3/uL (1.5-5.0); LYMPH % 2.5 % (24.0-44.0); MEAN CORPUSCULAR HEMOGLOBIN 31.6 pg (27.0-33.0); MEAN CORPUSCULAR HGB CONC 32.9 g/dl (32.0-36.5); MEAN CORPUSCULAR VOLUME 96.2 fl (80.0-96.0); MONO # 0.8 10^3/uL (0.0-0.8); MONO % 4.5 % (2.0-8.0); NEUTROPHILS # 15.6 10^3/uL (1.5-8.5); NEUTROPHILS % 90.6 % (36.0-66.0); PLATELET COUNT, AUTOMATED 287 10^3/uL (150-450); RED BLOOD COUNT 3.16 10^6/uL (4.30-6.10); WHITE BLOOD COUNT 17.2 10^3/uL (4.0-10.0)
[2022-09-02] MEDS: LEVALBUTEROL 1.25 MG/0.5 ML CONCENTRATE NEB INH PRN (05:27)
[2022-09-02 05:49] LABS: CALCIUM LEVEL 8.4 MG/DL (8.8-10.2); CREATININE FOR GFR 1.35 MG/DL (0.70-1.30); GLOMERULAR FILTRATION RATE 54.8 (>42); POTASSIUM SERUM 4.4 MEQ/L (3.5-5.1)
[2022-09-02] MEDS: ASPIRIN 81MG ENTERIC TABLET PO SCH (08:08)
[2022-09-02] MEDS: cefTRIAXone SOD 2 GM in D5W MINI-BAG PLUS 50 ML IV SCH (08:09)
[2022-09-02] MEDS: APIXABAN 5 MG TAB (ELIQUIS) PO SCH ×2 (08:09→20:36)
[2022-09-02] MEDS: guaiFENesin ER 600 MG TAB PO SCH ×2 (08:09→20:36)
[2022-09-02] MEDS: DOXYCYCLINE HYCLATE 100MG TABLET PO SCH (08:09)
[2022-09-02] MEDS: MIRALAX *UNIT DOSE* 17GM PACKET PO SCH ×2 (08:12→20:36)
[2022-09-02] MEDS: FEXOFENADINE 60MG TAB PO SCH (08:12)
[2022-09-02] MEDS: SENOKOT S TAB PO SCH ×2 (08:13→20:36)
[2022-09-02] MEDS: MULTIVITAMINS/MINERALS THERAP 1 TAB PO SCH (08:14)
[2022-09-02] MEDS: BUDESONIDE 0.5 MG/2 ML INHALATION SUSPENSION INH SCH ×2 (08:18→19:54)
[2022-09-02] MEDS: TIOTROPIUM INHALER/CAPSULE (SPIRIVA) INH SCH (08:18)
[2022-09-02] MEDS: LEVALBUTEROL 1.25 MG/0.5 ML CONCENTRATE NEB INH SCH ×4 (08:18→19:54)
[2022-09-02] MEDS ORDERED: GLUCAGON INJ 1MG VIAL SC PRN (10:00)
[2022-09-02] MEDS ORDERED: GLUCOSE 4GM CHEW TABLET PO PRN (10:00)
[2022-09-02] MEDS ORDERED: DEXTROSE 50% 50 ML SYRINGE IV PRN (10:00)
[2022-09-02] MEDS: PANTOPRAZOLE 40MG TAB (PROTONIX) PO SCH (10:27)
[2022-09-02] MEDS: AZITHROMYCIN 250MG TABLET PO SCH (10:27)
[2022-09-02] MEDS: INSULIN LISPRO (NovoLOG) PER UNIT SC SCH ×2 (12:02→18:16)
[2022-09-02] MEDS: ATORVASTATIN 20 MG TAB PO SCH (18:16)
[2022-09-02] MEDS: OMEGA-3 1000MG CAPSULE PO SCH (18:17)
[2022-09-03] VITALS (20 sets, daily range): BP systolic 111–145; BP diastolic 55–69
[2022-09-03] MEDS: methylPREDNISolone 125MG 2ML VIAL IV SCH ×4 (01:24→20:18)
[2022-09-03] MEDS: INSULIN LISPRO (NovoLOG) PER UNIT SC SCH ×5 (05:36→23:50)
[2022-09-03 06:09] LABS: BASO % 0.2 % (0.0-1.0); HEMOGLOBIN 10.7 g/dl (13.5-17.5); LYMPH # 0.6 10^3/uL (1.5-5.0); MEAN CORPUSCULAR HEMOGLOBIN 31.2 pg (27.0-33.0); MEAN CORPUSCULAR HGB CONC 31.5 g/dl (32.0-36.5); MEAN CORPUSCULAR VOLUME 99.1 fl (80.0-96.0); MONO # 0.6 10^3/uL (0.0-0.8); MONO % 4.3 % (2.0-8.0); NEUTROPHILS # 12.6 10^3/uL (1.5-8.5); NEUTROPHILS % 89.7 % (36.0-66.0); PLATELET COUNT, AUTOMATED 290 10^3/uL (150-450); RED BLOOD COUNT 3.43 10^6/uL (4.30-6.10); WHITE BLOOD COUNT 14.1 10^3/uL (4.0-10.0)
[2022-09-03 06:37] LABS: BLOOD UREA NITROGEN 70 MG/DL (7-18); CALCIUM LEVEL 8.2 MG/DL (8.8-10.2); CARBON DIOXIDE LEVEL 23 MEQ/L (21-32); CHLORIDE LEVEL 112 MEQ/L (98-107); CREATININE FOR GFR 1.24 MG/DL (0.70-1.30); GLOMERULAR FILTRATION RATE > 60.0 (>42); GLUCOSE, FASTING 175 MG/DL (70-100); POTASSIUM SERUM 4.3 MEQ/L (3.5-5.1); SODIUM LEVEL 143 MEQ/L (136-145)
[2022-09-03] MEDS: BUDESONIDE 0.5 MG/2 ML INHALATION SUSPENSION INH SCH ×2 (07:39→20:57)
[2022-09-03] MEDS: TIOTROPIUM INHALER/CAPSULE (SPIRIVA) INH SCH (07:39)
[2022-09-03] MEDS: LEVALBUTEROL 1.25 MG/0.5 ML CONCENTRATE NEB INH SCH ×4 (07:39→20:57)
[2022-09-03] MEDS: FEXOFENADINE 60MG TAB PO SCH (09:05)
[2022-09-03] MEDS: MIRALAX *UNIT DOSE* 17GM PACKET PO SCH ×2 (09:05→20:18)
[2022-09-03] MEDS: ASPIRIN 81MG ENTERIC TABLET PO SCH (09:05)
[2022-09-03] MEDS: MULTIVITAMINS/MINERALS THERAP 1 TAB PO SCH (09:06)
[2022-09-03] MEDS: SENOKOT S TAB PO SCH ×2 (09:06→20:19)
[2022-09-03] MEDS: AZITHROMYCIN 250MG TABLET PO SCH (09:06)
[2022-09-03] MEDS: PANTOPRAZOLE 40MG TAB (PROTONIX) PO SCH (09:06)
[2022-09-03] MEDS: cefTRIAXone SOD 2 GM in D5W MINI-BAG PLUS 50 ML IV SCH (09:09)
[2022-09-03] MEDS: guaiFENesin ER 600 MG TAB PO SCH ×2 (09:09→20:18)
[2022-09-03] MEDS: APIXABAN 5 MG TAB (ELIQUIS) PO SCH ×2 (09:10→20:18)
[2022-09-03 16:09] LABS: FUNGITELL, SERUM <31 pg/mL (<80)
[2022-09-03] MEDS: OMEGA-3 1000MG CAPSULE PO SCH (18:05)
[2022-09-03] MEDS: ATORVASTATIN 20 MG TAB PO SCH (18:05)
[2022-09-04] VITALS (22 sets, daily range): BP systolic 110–153; BP diastolic 57–92
[2022-09-04] MEDS: methylPREDNISolone 125MG 2ML VIAL IV SCH ×4 (01:50→20:38)
[2022-09-04] MEDS: INSULIN LISPRO (NovoLOG) PER UNIT SC SCH ×3 (05:28→17:47)
[2022-09-04 05:33] LABS: BASO % 0.1 % (0.0-1.0); HEMATOCRIT 32.6 % (42.0-52.0); HEMOGLOBIN 10.6 g/dl (13.5-17.5); LYMPH # 0.4 10^3/uL (1.5-5.0); LYMPH % 2.5 % (24.0-44.0); MEAN CORPUSCULAR HEMOGLOBIN 31.7 pg (27.0-33.0); MEAN CORPUSCULAR HGB CONC 32.5 g/dl (32.0-36.5); MEAN CORPUSCULAR VOLUME 97.6 fl (80.0-96.0); MONO # 0.7 10^3/uL (0.0-0.8); MONO % 4.4 % (2.0-8.0); NEUTROPHILS # 14.7 10^3/uL (1.5-8.5); NEUTROPHILS % 91.8 % (36.0-66.0); PLATELET COUNT, AUTOMATED 291 10^3/uL (150-450); RED BLOOD COUNT 3.34 10^6/uL (4.30-6.10)
[2022-09-04 05:59] LABS: BLOOD UREA NITROGEN 73 MG/DL (7-18); CALCIUM LEVEL 8.3 MG/DL (8.8-10.2); CARBON DIOXIDE LEVEL 28 MEQ/L (21-32); CHLORIDE LEVEL 113 MEQ/L (98-107); GLOMERULAR FILTRATION RATE 52.6 (>42); GLUCOSE, FASTING 203 MG/DL (70-100); POTASSIUM SERUM 4.5 MEQ/L (3.5-5.1); SODIUM LEVEL 146 MEQ/L (136-145)
[2022-09-04] MEDS: BUDESONIDE 0.5 MG/2 ML INHALATION SUSPENSION INH SCH ×2 (07:36→20:03)
[2022-09-04] MEDS: LEVALBUTEROL 1.25 MG/0.5 ML CONCENTRATE NEB INH SCH ×4 (07:36→20:03)
[2022-09-04] MEDS: TIOTROPIUM INHALER/CAPSULE (SPIRIVA) INH SCH (07:36)
[2022-09-04] MEDS: MIRALAX *UNIT DOSE* 17GM PACKET PO SCH ×2 (08:37→20:39)
[2022-09-04] MEDS: SENOKOT S TAB PO SCH ×2 (08:37→20:39)
[2022-09-04] MEDS: FEXOFENADINE 60MG TAB PO SCH (08:38)
[2022-09-04] MEDS: guaiFENesin ER 600 MG TAB PO SCH ×2 (08:38→20:39)
[2022-09-04] MEDS: cefTRIAXone SOD 2 GM in D5W MINI-BAG PLUS 50 ML IV SCH (08:38)
[2022-09-04] MEDS: AZITHROMYCIN 250MG TABLET PO SCH (08:38)
[2022-09-04] MEDS: ASPIRIN 81MG ENTERIC TABLET PO SCH (08:38)
[2022-09-04] MEDS: PANTOPRAZOLE 40MG TAB (PROTONIX) PO SCH (08:38)
[2022-09-04] MEDS: APIXABAN 5 MG TAB (ELIQUIS) PO SCH ×2 (08:38→20:39)
[2022-09-04] MEDS: MULTIVITAMINS/MINERALS THERAP 1 TAB PO SCH (08:38)
[2022-09-04 08:46] LABS: RHEUMATOID FACTOR QUANT < 10.0 IU/ML (<15.0)
[2022-09-04 12:10] LABS: ANA (HEP2) Negative (.); ANTI CENTROMERE ANTIBODY <0.2 AI (0.0-0.9); ANTI DS-DNA AB Negative (Negative); ANTI SCLERODERMA ANTIBODIES <0.2 AI (0.0-0.9); RNP ANTIBODY < 0.2 AI (0.0-0.9); SMITHS ANTIBODY < 0.2 AI (0.0-0.9); SSA SJOGRENS A <0.2 AI (0.0-0.9); SSB SJOGRENS B <0.2 AI (0.0-0.9)
[2022-09-04 13:55] LABS: IMMUNOGLOBULIN M 37.6 MG/DL (40-230)
[2022-09-04] MEDS: ATORVASTATIN 20 MG TAB PO SCH (17:46)
[2022-09-04] MEDS: OMEGA-3 1000MG CAPSULE PO SCH (17:46)
[2022-09-05] VITALS (24 sets, daily range): BP systolic 102–179; BP diastolic 55–77
[2022-09-05] MEDS: INSULIN LISPRO (NovoLOG) PER UNIT SC SCH ×5 (00:01→23:55)
[2022-09-05] MEDS: methylPREDNISolone 125MG 2ML VIAL IV SCH ×4 (02:08→19:36)
[2022-09-05 05:18] LABS: BASO % 0.1 % (0.0-1.0); HEMATOCRIT 31.5 % (42.0-52.0); HEMOGLOBIN 10.1 g/dl (13.5-17.5); LYMPH # 0.4 10^3/uL (1.5-5.0); LYMPH % 2.2 % (24.0-44.0); MEAN CORPUSCULAR HEMOGLOBIN 30.5 pg (27.0-33.0); MEAN CORPUSCULAR HGB CONC 32.1 g/dl (32.0-36.5); MEAN CORPUSCULAR VOLUME 95.2 fl (80.0-96.0); MONO # 0.6 10^3/uL (0.0-0.8); MONO % 3.5 % (2.0-8.0); NEUTROPHILS # 15.6 10^3/uL (1.5-8.5); NEUTROPHILS % 92.4 % (36.0-66.0); PLATELET COUNT, AUTOMATED 258 10^3/uL (150-450); RED BLOOD COUNT 3.31 10^6/uL (4.30-6.10); WHITE BLOOD COUNT 16.9 10^3/uL (4.0-10.0)
[2022-09-05 05:57] LABS: BLOOD UREA NITROGEN 68 MG/DL (7-18); CARBON DIOXIDE LEVEL 24 MEQ/L (21-32); CHLORIDE LEVEL 112 MEQ/L (98-107); CREATININE FOR GFR 1.21 MG/DL (0.70-1.30); GLOMERULAR FILTRATION RATE > 60.0 (>42); GLUCOSE, FASTING 160 MG/DL (70-100); POTASSIUM SERUM 3.7 MEQ/L (3.5-5.1); SODIUM LEVEL 142 MEQ/L (136-145)
[2022-09-05] MEDS: BUDESONIDE 0.5 MG/2 ML INHALATION SUSPENSION INH SCH ×2 (07:52→19:58)
[2022-09-05] MEDS: TIOTROPIUM INHALER/CAPSULE (SPIRIVA) INH SCH (07:52)
[2022-09-05] MEDS: LEVALBUTEROL 1.25 MG/0.5 ML CONCENTRATE NEB INH SCH ×4 (07:52→19:58)
[2022-09-05] MEDS: cefTRIAXone SOD 2 GM in D5W MINI-BAG PLUS 50 ML IV SCH (08:33)
[2022-09-05] MEDS: SENOKOT S TAB PO SCH ×2 (08:33→20:28)
[2022-09-05] MEDS: MIRALAX *UNIT DOSE* 17GM PACKET PO SCH ×2 (08:33→20:27)
[2022-09-05] MEDS: APIXABAN 5 MG TAB (ELIQUIS) PO SCH ×2 (08:34→20:27)
[2022-09-05] MEDS: FEXOFENADINE 60MG TAB PO SCH (08:34)
[2022-09-05] MEDS: ASPIRIN 81MG ENTERIC TABLET PO SCH (08:34)
[2022-09-05] MEDS: PANTOPRAZOLE 40MG TAB (PROTONIX) PO SCH (08:34)
[2022-09-05] MEDS: AZITHROMYCIN 250MG TABLET PO SCH (08:34)
[2022-09-05] MEDS: MULTIVITAMINS/MINERALS THERAP 1 TAB PO SCH (08:34)
[2022-09-05] MEDS: guaiFENesin ER 600 MG TAB PO SCH ×2 (08:34→20:28)
[2022-09-05] MEDS ORDERED: FUROSEMIDE 20MG/2ML VIAL (J1940) IV ONE (10:15)
[2022-09-05] MEDS: ATORVASTATIN 20 MG TAB PO SCH (17:13)
[2022-09-05] MEDS: OMEGA-3 1000MG CAPSULE PO SCH (17:14)
[2022-09-06] VITALS (15 sets, daily range): BP systolic 95–144; BP diastolic 52–69; O2SAT 88–91
[2022-09-06] MEDS: methylPREDNISolone 125MG 2ML VIAL IV SCH ×4 (01:21→19:54)
[2022-09-06 05:08] LABS: BASO % 0.1 % (0.0-1.0); HEMATOCRIT 31.3 % (42.0-52.0); HEMOGLOBIN 10.4 g/dl (13.5-17.5); LYMPH # 0.4 10^3/uL (1.5-5.0); LYMPH % 2.1 % (24.0-44.0); MEAN CORPUSCULAR HGB CONC 33.2 g/dl (32.0-36.5); MEAN CORPUSCULAR VOLUME 93.4 fl (80.0-96.0); MONO # 0.6 10^3/uL (0.0-0.8); MONO % 3.5 % (2.0-8.0); NEUTROPHILS # 15.2 10^3/uL (1.5-8.5); NEUTROPHILS % 91.4 % (36.0-66.0); PLATELET COUNT, AUTOMATED 246 10^3/uL (150-450); RED BLOOD COUNT 3.35 10^6/uL (4.30-6.10); WHITE BLOOD COUNT 16.7 10^3/uL (4.0-10.0)
[2022-09-06 05:38] LABS: BLOOD UREA NITROGEN 62 MG/DL (7-18); CALCIUM LEVEL 7.9 MG/DL (8.8-10.2); CARBON DIOXIDE LEVEL 25 MEQ/L (21-32); CHLORIDE LEVEL 109 MEQ/L (98-107); CREATININE FOR GFR 1.17 MG/DL (0.70-1.30); GLOMERULAR FILTRATION RATE > 60.0 (>42); GLUCOSE, FASTING 178 MG/DL (70-100); POTASSIUM SERUM 3.5 MEQ/L (3.5-5.1); SODIUM LEVEL 140 MEQ/L (136-145)
[2022-09-06] MEDS: INSULIN LISPRO (NovoLOG) PER UNIT SC SCH ×3 (06:03→18:31)
[2022-09-06] MEDS: BUDESONIDE 0.5 MG/2 ML INHALATION SUSPENSION INH SCH ×2 (07:47→19:25)
[2022-09-06] MEDS: TIOTROPIUM INHALER/CAPSULE (SPIRIVA) INH SCH (07:47)
[2022-09-06] MEDS: LEVALBUTEROL 1.25 MG/0.5 ML CONCENTRATE NEB INH SCH ×4 (07:47→19:25)
[2022-09-06] MEDS: cefTRIAXone SOD 2 GM in D5W MINI-BAG PLUS 50 ML IV SCH (08:48)
[2022-09-06] MEDS: APIXABAN 5 MG TAB (ELIQUIS) PO SCH ×2 (08:49→21:10)
[2022-09-06] MEDS: SENOKOT S TAB PO SCH ×2 (08:49→21:11)
[2022-09-06] MEDS: AZITHROMYCIN 250MG TABLET PO SCH (08:49)
[2022-09-06] MEDS: FEXOFENADINE 60MG TAB PO SCH (08:49)
[2022-09-06] MEDS: guaiFENesin ER 600 MG TAB PO SCH ×2 (08:49→21:11)
[2022-09-06] MEDS: MULTIVITAMINS/MINERALS THERAP 1 TAB PO SCH (08:49)
[2022-09-06] MEDS: PANTOPRAZOLE 40MG TAB (PROTONIX) PO SCH (08:49)
[2022-09-06] MEDS: MIRALAX *UNIT DOSE* 17GM PACKET PO SCH ×2 (08:49→21:00)
[2022-09-06] MEDS: ASPIRIN 81MG ENTERIC TABLET PO SCH (08:49)
[2022-09-06] MEDS ORDERED: FUROSEMIDE 20MG/2ML VIAL (J1940) IV ONE (09:50)
[2022-09-06] MEDS: ATORVASTATIN 20 MG TAB PO SCH (18:31)
[2022-09-07] MEDS: INSULIN LISPRO (NovoLOG) PER UNIT SC SCH ×4 (00:02→17:01)
[2022-09-07] MEDS: methylPREDNISolone 125MG 2ML VIAL IV SCH ×4 (02:00→20:16)
[2022-09-07 04:16] VITALS: BP 116/56
[2022-09-07 05:05] LABS: BASO % 0.2 % (0.0-1.0); HEMATOCRIT 31.3 % (42.0-52.0); HEMOGLOBIN 10.5 g/dl (13.5-17.5); LYMPH # 0.3 10^3/uL (1.5-5.0); LYMPH % 1.7 % (24.0-44.0); MEAN CORPUSCULAR HEMOGLOBIN 31.2 pg (27.0-33.0); MEAN CORPUSCULAR HGB CONC 33.5 g/dl (32.0-36.5); MEAN CORPUSCULAR VOLUME 92.9 fl (80.0-96.0); MONO # 0.7 10^3/uL (0.0-0.8); MONO % 3.7 % (2.0-8.0); NEUTROPHILS # 16.5 10^3/uL (1.5-8.5); NEUTROPHILS % 91.4 % (36.0-66.0); PLATELET COUNT, AUTOMATED 225 10^3/uL (150-450); RED BLOOD COUNT 3.37 10^6/uL (4.30-6.10)
[2022-09-07 05:35] LABS: BLOOD UREA NITROGEN 59 MG/DL (7-18); CALCIUM LEVEL 7.6 MG/DL (8.8-10.2); CARBON DIOXIDE LEVEL 28 MEQ/L (21-32); CHLORIDE LEVEL 109 MEQ/L (98-107); CREATININE FOR GFR 1.16 MG/DL (0.70-1.30); GLOMERULAR FILTRATION RATE > 60.0 (>42); GLUCOSE, FASTING 152 MG/DL (70-100); POTASSIUM SERUM 3.4 MEQ/L (3.5-5.1); SODIUM LEVEL 140 MEQ/L (136-145)
[2022-09-07] MEDS: LEVALBUTEROL 1.25 MG/0.5 ML CONCENTRATE NEB INH SCH ×4 (08:13→22:00)
[2022-09-07] MEDS: BUDESONIDE 0.5 MG/2 ML INHALATION SUSPENSION INH SCH ×2 (08:13→22:00)
[2022-09-07] MEDS: MIRALAX *UNIT DOSE* 17GM PACKET PO SCH ×2 (08:38→20:15)
[2022-09-07] MEDS: PANTOPRAZOLE 40MG TAB (PROTONIX) PO SCH (08:43)
[2022-09-07] MEDS: AZITHROMYCIN 250MG TABLET PO SCH (08:43)
[2022-09-07] MEDS: MULTIVITAMINS/MINERALS THERAP 1 TAB PO SCH (08:43)
[2022-09-07] MEDS: FEXOFENADINE 60MG TAB PO SCH (08:43)
[2022-09-07] MEDS: ASPIRIN 81MG ENTERIC TABLET PO SCH (08:43)
[2022-09-07] MEDS: cefTRIAXone SOD 2 GM in D5W MINI-BAG PLUS 50 ML IV SCH (08:43)
[2022-09-07] MEDS: APIXABAN 5 MG TAB (ELIQUIS) PO SCH ×2 (08:43→20:15)
[2022-09-07] MEDS: guaiFENesin ER 600 MG TAB PO SCH (08:43)
[2022-09-07] MEDS: SENOKOT S TAB PO SCH ×2 (08:43→20:15)
[2022-09-07] MEDS ORDERED: POTASSIUM CHLORIDE 10MEQ SR TABLET PO ONE (11:20)
[2022-09-07 11:50] VITALS: O2SAT 88
[2022-09-07] MEDS: FUROSEMIDE 40MG/4ML VIAL (J1940) IV SCH (12:11)
[2022-09-07 12:16] VITALS: BP 125/60
[2022-09-07 16:00] VITALS: BP 126/63
[2022-09-07] MEDS: ATORVASTATIN 20 MG TAB PO SCH (17:00)
[2022-09-07 20:00] VITALS: BP 133/63
[2022-09-08] VITALS: BP 119/56
[2022-09-08] MEDS: INSULIN LISPRO (NovoLOG) PER UNIT SC SCH ×5 (02:55→20:17)
[2022-09-08] MEDS: methylPREDNISolone 125MG 2ML VIAL IV SCH ×4 (02:56→20:16)
[2022-09-08 04:00] VITALS: BP 114/53
[2022-09-08 05:53] LABS: BASO % 0.1 % (0.0-1.0); HEMATOCRIT 30.8 % (42.0-52.0); HEMOGLOBIN 10.1 g/dl (13.5-17.5); LYMPH # 0.4 10^3/uL (1.5-5.0); LYMPH % 2.1 % (24.0-44.0); MEAN CORPUSCULAR HEMOGLOBIN 30.7 pg (27.0-33.0); MEAN CORPUSCULAR HGB CONC 32.8 g/dl (32.0-36.5); MEAN CORPUSCULAR VOLUME 93.6 fl (80.0-96.0); MONO # 0.5 10^3/uL (0.0-0.8); MONO % 2.8 % (2.0-8.0); NEUTROPHILS # 17.5 10^3/uL (1.5-8.5); NEUTROPHILS % 92.3 % (36.0-66.0); PLATELET COUNT, AUTOMATED 214 10^3/uL (150-450); RED BLOOD COUNT 3.29 10^6/uL (4.30-6.10)
[2022-09-08 06:39] LABS: BLOOD UREA NITROGEN 66 MG/DL (7-18); CALCIUM LEVEL 7.9 MG/DL (8.8-10.2); CARBON DIOXIDE LEVEL 28 MEQ/L (21-32); CHLORIDE LEVEL 109 MEQ/L (98-107); GLOMERULAR FILTRATION RATE > 60.0 (>42); GLUCOSE, FASTING 159 MG/DL (70-100); POTASSIUM SERUM 3.6 MEQ/L (3.5-5.1); SODIUM LEVEL 142 MEQ/L (136-145)
[2022-09-08] MEDS: BUDESONIDE 0.5 MG/2 ML INHALATION SUSPENSION INH SCH ×2 (07:31→21:00)
[2022-09-08] MEDS: LEVALBUTEROL 1.25 MG/0.5 ML CONCENTRATE NEB INH SCH ×4 (07:32→21:00)
[2022-09-08 08:31] VITALS: BP 107/53
[2022-09-08] MEDS: PANTOPRAZOLE 40MG TAB (PROTONIX) PO SCH (08:39)
[2022-09-08] MEDS: FEXOFENADINE 60MG TAB PO SCH (08:39)
[2022-09-08] MEDS: MIRALAX *UNIT DOSE* 17GM PACKET PO SCH ×2 (08:39→20:16)
[2022-09-08] MEDS: APIXABAN 5 MG TAB (ELIQUIS) PO SCH ×2 (08:39→20:16)
[2022-09-08] MEDS: SENOKOT S TAB PO SCH ×2 (08:39→20:16)
[2022-09-08] MEDS: AZITHROMYCIN 250MG TABLET PO SCH (08:39)
[2022-09-08] MEDS: MULTIVITAMINS/MINERALS THERAP 1 TAB PO SCH (08:39)
[2022-09-08] MEDS: ASPIRIN 81MG ENTERIC TABLET PO SCH (08:40)
[2022-09-08] MEDS: FUROSEMIDE 40MG/4ML VIAL (J1940) IV SCH (08:40)
[2022-09-08 13:00] VITALS: BP 115/60
[2022-09-08 16:00] VITALS: BP 105/56
[2022-09-08] MEDS: ATORVASTATIN 20 MG TAB PO SCH (17:56)
[2022-09-08 20:00] VITALS: BP 137/61
[2022-09-09] VITALS: BP 109/55
[2022-09-09] MEDS: methylPREDNISolone 125MG 2ML VIAL IV SCH ×4 (01:03→19:49)
[2022-09-09 04:00] VITALS: BP 122/58
[2022-09-09 06:16] LABS: ABG BASE EXCESS 4.5 (-2.0-2.0); ABG HCO3 27.2 MEQ/L (22.0-26.0); ABG O2 SATURATION 89.8 % (95.0-99.0); ABG PARTIAL PRESSURE CO2 33.8 mmHg (35.0-45.0); ABG PARTIAL PRESSURE O2 57.3 mmHg (75.0-100.0); ABG STANDARD HCO3 28.3 MEQ/L (22.0-26.0); ABG TOTAL CO2 28.2 MEQ/L (23.0-31.0); ABG pH (ARTERIAL) 7.523 UNITS (7.350-7.450)
[2022-09-09] MEDS: INSULIN LISPRO (NovoLOG) PER UNIT SC SCH ×4 (07:58→20:32)
[2022-09-09 08:00] VITALS: BP 106/51
[2022-09-09] MEDS: LEVALBUTEROL 1.25 MG/0.5 ML CONCENTRATE NEB INH SCH ×4 (08:18→20:25)
[2022-09-09] MEDS: BUDESONIDE 0.5 MG/2 ML INHALATION SUSPENSION INH SCH ×2 (08:18→20:25)
[2022-09-09] MEDS: FEXOFENADINE 60MG TAB PO SCH (08:40)
[2022-09-09] MEDS: MIRALAX *UNIT DOSE* 17GM PACKET PO SCH ×2 (08:40→20:34)
[2022-09-09] MEDS: SENOKOT S TAB PO SCH ×2 (08:41→20:36)
[2022-09-09] MEDS: ASPIRIN 81MG ENTERIC TABLET PO SCH (08:41)
[2022-09-09] MEDS: MULTIVITAMINS/MINERALS THERAP 1 TAB PO SCH (08:41)
[2022-09-09] MEDS: APIXABAN 5 MG TAB (ELIQUIS) PO SCH ×2 (08:41→20:36)
[2022-09-09] MEDS: PANTOPRAZOLE 40MG TAB (PROTONIX) PO SCH (08:41)
[2022-09-09 12:00] VITALS: BP 107/55
[2022-09-09 16:00] VITALS: BP 136/65
[2022-09-09 17:07] LABS: HISTOPLASMA GAL'MANNAN AG UR <0.5 (<0.5 ng/mL)
[2022-09-09] MEDS: ATORVASTATIN 20 MG TAB PO SCH (17:23)
[2022-09-09 20:00] VITALS: BP 140/76
[2022-09-10] VITALS: BP 136/64
[2022-09-10] MEDS: methylPREDNISolone 125MG 2ML VIAL IV SCH ×4 (01:53→20:14)
[2022-09-10 04:00] VITALS: BP 123/68
[2022-09-10 05:50] LABS: HEMATOCRIT 31.6 % (42.0-52.0); HEMOGLOBIN 10.7 g/dl (13.5-17.5); MEAN CORPUSCULAR HEMOGLOBIN 31.2 pg (27.0-33.0); MEAN CORPUSCULAR HGB CONC 33.9 g/dl (32.0-36.5); MEAN CORPUSCULAR VOLUME 92.1 fl (80.0-96.0); PLATELET COUNT, AUTOMATED 157 10^3/uL (150-450); RED BLOOD COUNT 3.43 10^6/uL (4.30-6.10); WHITE BLOOD COUNT 18.7 10^3/uL (4.0-10.0)
[2022-09-10 06:34] LABS: BLOOD UREA NITROGEN 65 MG/DL (7-18); CALCIUM LEVEL 7.5 MG/DL (8.8-10.2); CARBON DIOXIDE LEVEL 21 MEQ/L (21-32); CHLORIDE LEVEL 109 MEQ/L (98-107); CREATININE FOR GFR 1.21 MG/DL (0.70-1.30); GLOMERULAR FILTRATION RATE > 60.0 (>42); GLUCOSE, FASTING 217 MG/DL (70-100); SODIUM LEVEL 137 MEQ/L (136-145)
[2022-09-10] MEDS: LEVALBUTEROL 1.25 MG/0.5 ML CONCENTRATE NEB INH SCH ×4 (07:43→19:28)
[2022-09-10] MEDS: BUDESONIDE 0.5 MG/2 ML INHALATION SUSPENSION INH SCH ×2 (07:43→19:28)
[2022-09-10 08:00] VITALS: BP 137/58
[2022-09-10] MEDS: INSULIN LISPRO (NovoLOG) PER UNIT SC SCH ×4 (08:02→20:15)
[2022-09-10] MEDS: MIRALAX *UNIT DOSE* 17GM PACKET PO SCH ×2 (08:45→20:35)
[2022-09-10] MEDS: ASPIRIN 81MG ENTERIC TABLET PO SCH (08:46)
[2022-09-10] MEDS: APIXABAN 5 MG TAB (ELIQUIS) PO SCH ×2 (08:46→20:14)
[2022-09-10] MEDS: SENOKOT S TAB PO SCH ×2 (08:46→20:14)
[2022-09-10] MEDS: MULTIVITAMINS/MINERALS THERAP 1 TAB PO SCH (08:46)
[2022-09-10] MEDS: FEXOFENADINE 60MG TAB PO SCH (08:46)
[2022-09-10] MEDS: PANTOPRAZOLE 40MG TAB (PROTONIX) PO SCH (08:46)
[2022-09-10 12:00] VITALS: BP 124/59
[2022-09-10 16:00] VITALS: BP 122/58
[2022-09-10] MEDS: ATORVASTATIN 20 MG TAB PO SCH (17:21)
[2022-09-10 19:59] VITALS: BP 132/66
[2022-09-11] VITALS (7 sets, daily range): BP systolic 110–148; BP diastolic 60–76
[2022-09-11] MEDS: methylPREDNISolone 125MG 2ML VIAL IV SCH ×4 (02:24→19:43)
[2022-09-11 04:21] LABS: BASO % 0.2 % (0.0-1.0); HEMATOCRIT 31.5 % (42.0-52.0); HEMOGLOBIN 10.6 g/dl (13.5-17.5); LYMPH # 0.3 10^3/uL (1.5-5.0); LYMPH % 1.4 % (24.0-44.0); MEAN CORPUSCULAR HEMOGLOBIN 31.3 pg (27.0-33.0); MEAN CORPUSCULAR HGB CONC 33.7 g/dl (32.0-36.5); MEAN CORPUSCULAR VOLUME 92.9 fl (80.0-96.0); MONO # 0.6 10^3/uL (0.0-0.8); MONO % 2.4 % (2.0-8.0); NEUTROPHILS # 21.9 10^3/uL (1.5-8.5); NEUTROPHILS % 94.2 % (36.0-66.0); PLATELET COUNT, AUTOMATED 172 10^3/uL (150-450); RED BLOOD COUNT 3.39 10^6/uL (4.30-6.10); WHITE BLOOD COUNT 23.3 10^3/uL (4.0-10.0)
[2022-09-11 05:11] LABS: BLOOD UREA NITROGEN 62 MG/DL (7-18); CALCIUM LEVEL 7.7 MG/DL (8.8-10.2); CARBON DIOXIDE LEVEL 29 MEQ/L (21-32); CHLORIDE LEVEL 108 MEQ/L (98-107); GLOMERULAR FILTRATION RATE > 60.0 (>42); GLUCOSE, FASTING 229 MG/DL (70-100); SODIUM LEVEL 140 MEQ/L (136-145)
[2022-09-11] MEDS: LEVALBUTEROL 1.25 MG/0.5 ML CONCENTRATE NEB INH SCH ×4 (07:35→19:47)
[2022-09-11] MEDS: BUDESONIDE 0.5 MG/2 ML INHALATION SUSPENSION INH SCH ×2 (07:35→19:47)
[2022-09-11] MEDS: INSULIN LISPRO (NovoLOG) PER UNIT SC SCH ×4 (08:00→21:03)
[2022-09-11] MEDS: SENOKOT S TAB PO SCH ×2 (09:00→21:03)
[2022-09-11] MEDS: MIRALAX *UNIT DOSE* 17GM PACKET PO SCH ×2 (09:00→20:37)
[2022-09-11 09:43] LABS: ABG HCO3 26.8 MEQ/L (22.0-26.0); ABG O2 SATURATION 90.1 % (95.0-99.0); ABG PARTIAL PRESSURE CO2 38.3 mmHg (35.0-45.0); ABG PARTIAL PRESSURE O2 58.5 mmHg (75.0-100.0); ABG pH (ARTERIAL) 7.463 UNITS (7.350-7.450)
[2022-09-11] MEDS: ASPIRIN 81MG ENTERIC TABLET PO SCH (10:27)
[2022-09-11] MEDS: APIXABAN 5 MG TAB (ELIQUIS) PO SCH ×2 (10:28→21:03)
[2022-09-11] MEDS: PANTOPRAZOLE 40MG TAB (PROTONIX) PO SCH (10:28)
[2022-09-11] MEDS: FEXOFENADINE 60MG TAB PO SCH (10:28)
[2022-09-11] MEDS: MULTIVITAMINS/MINERALS THERAP 1 TAB PO SCH (10:28)
[2022-09-11] MEDS: ATORVASTATIN 20 MG TAB PO SCH (17:59)
[2022-09-12] VITALS (16 sets, daily range): BP systolic 109–143; BP diastolic 57–74
[2022-09-12] MEDS: methylPREDNISolone 125MG 2ML VIAL IV SCH ×4 (01:42→20:13)
[2022-09-12 05:44] LABS: ABG BASE EXCESS 5.1 (-2.0-2.0); ABG HCO3 28.7 MEQ/L (22.0-26.0); ABG O2 SATURATION 93.3 % (95.0-99.0); ABG PARTIAL PRESSURE CO2 38.2 mmHg (35.0-45.0); ABG TOTAL CO2 29.8 MEQ/L (23.0-31.0); ABG pH (ARTERIAL) 7.493 UNITS (7.350-7.450)
[2022-09-12 06:19] LABS: BASO % 0.1 % (0.0-1.0); HEMOGLOBIN 10.3 g/dl (13.5-17.5); LYMPH # 0.2 10^3/uL (1.5-5.0); LYMPH % 1.1 % (24.0-44.0); MEAN CORPUSCULAR HEMOGLOBIN 31.3 pg (27.0-33.0); MEAN CORPUSCULAR HGB CONC 33.2 g/dl (32.0-36.5); MEAN CORPUSCULAR VOLUME 94.2 fl (80.0-96.0); MONO # 0.5 10^3/uL (0.0-0.8); MONO % 2.3 % (2.0-8.0); NEUTROPHILS # 21.3 10^3/uL (1.5-8.5); NEUTROPHILS % 94.7 % (36.0-66.0); PLATELET COUNT, AUTOMATED 164 10^3/uL (150-450); RED BLOOD COUNT 3.29 10^6/uL (4.30-6.10); WHITE BLOOD COUNT 22.4 10^3/uL (4.0-10.0)
[2022-09-12 06:40] LABS: BLOOD UREA NITROGEN 61 MG/DL (7-18); CALCIUM LEVEL 7.6 MG/DL (8.8-10.2); CARBON DIOXIDE LEVEL 30 MEQ/L (21-32); CHLORIDE LEVEL 109 MEQ/L (98-107); CREATININE FOR GFR 1.16 MG/DL (0.70-1.30); GLOMERULAR FILTRATION RATE > 60.0 (>42); GLUCOSE, FASTING 240 MG/DL (70-100); POTASSIUM SERUM 4.1 MEQ/L (3.5-5.1); SODIUM LEVEL 141 MEQ/L (136-145)
[2022-09-12] MEDS: LEVALBUTEROL 1.25 MG/0.5 ML CONCENTRATE NEB INH SCH ×4 (07:49→20:12)
[2022-09-12] MEDS: BUDESONIDE 0.5 MG/2 ML INHALATION SUSPENSION INH SCH ×2 (07:49→20:14)
[2022-09-12] MEDS: INSULIN LISPRO (NovoLOG) PER UNIT SC SCH ×4 (08:50→21:10)
[2022-09-12] MEDS: FEXOFENADINE 60MG TAB PO SCH (08:51)
[2022-09-12] MEDS: APIXABAN 5 MG TAB (ELIQUIS) PO SCH ×2 (08:51→20:13)
[2022-09-12] MEDS: MULTIVITAMINS/MINERALS THERAP 1 TAB PO SCH (08:51)
[2022-09-12] MEDS: PANTOPRAZOLE 40MG TAB (PROTONIX) PO SCH (08:51)
[2022-09-12] MEDS: SENOKOT S TAB PO SCH ×2 (08:51→20:13)
[2022-09-12] MEDS: ASPIRIN 81MG ENTERIC TABLET PO SCH (08:52)
[2022-09-12] MEDS: MIRALAX *UNIT DOSE* 17GM PACKET PO SCH ×2 (09:00→20:13)
[2022-09-12] MEDS ORDERED: FUROSEMIDE 20 MG TAB PO ONE (10:00)
[2022-09-12] MEDS ORDERED: FUROSEMIDE 20MG/2ML VIAL (J1940) IV ONE (11:15)
[2022-09-12] MEDS: BACTRIM 160MG/800MG DS TAB PO SCH ×2 (13:18→20:13)
[2022-09-12] MEDS: LORazepam 2 MG/ML VIAL IV PRN (14:15)
[2022-09-12] MEDS ORDERED: dexmedeTOMidine 200 MCG in IV 1 EA IV STA (14:48)
[2022-09-12] MEDS: ATORVASTATIN 20 MG TAB PO SCH (17:19)
[2022-09-12] MEDS: dexmedeTOMidine 200 MCG in IV 1 EA IV SCH (18:28)
[2022-09-13] VITALS (7 sets, daily range): BP systolic 112–154; BP diastolic 62–72
[2022-09-13] MEDS: methylPREDNISolone 125MG 2ML VIAL IV SCH ×4 (01:29→20:29)
[2022-09-13] MEDS: dexmedeTOMidine 200 MCG in IV 1 EA IV SCH ×2 (05:30→20:33)
[2022-09-13] MEDS: LEVALBUTEROL 1.25 MG/0.5 ML CONCENTRATE NEB INH SCH ×4 (08:00→19:10)
[2022-09-13] MEDS: BUDESONIDE 0.5 MG/2 ML INHALATION SUSPENSION INH SCH ×3 (08:00→19:10)
[2022-09-13] MEDS: PANTOPRAZOLE 40MG TAB (PROTONIX) PO SCH (08:23)
[2022-09-13] MEDS: MULTIVITAMINS/MINERALS THERAP 1 TAB PO SCH (08:23)
[2022-09-13] MEDS: INSULIN LISPRO (NovoLOG) PER UNIT SC SCH ×4 (08:23→20:39)
[2022-09-13] MEDS: BACTRIM 160MG/800MG DS TAB PO SCH ×2 (08:24→20:28)
[2022-09-13] MEDS: SENOKOT S TAB PO SCH ×2 (08:24→20:28)
[2022-09-13] MEDS: ASPIRIN 81MG ENTERIC TABLET PO SCH (08:24)
[2022-09-13] MEDS: APIXABAN 5 MG TAB (ELIQUIS) PO SCH ×2 (08:24→20:28)
[2022-09-13] MEDS: FEXOFENADINE 60MG TAB PO SCH (08:24)
[2022-09-13] MEDS: MIRALAX *UNIT DOSE* 17GM PACKET PO SCH ×2 (09:00→20:28)
[2022-09-13] MEDS: ATORVASTATIN 20 MG TAB PO SCH (17:49)
[2022-09-13] MEDS: LEVALBUTEROL 1.25 MG/0.5 ML CONCENTRATE NEB INH PRN (23:23)
[2022-09-14] VITALS (79 sets, daily range): BP systolic 80–210; BP diastolic 47–98
[2022-09-14] MEDS: dexmedeTOMidine 200 MCG in IV 1 EA IV SCH ×6 (01:28→17:44)
[2022-09-14] MEDS: methylPREDNISolone 125MG 2ML VIAL IV SCH ×4 (01:28→19:48)
[2022-09-14 04:39] LABS: HEMATOCRIT 30.8 % (42.0-52.0); MEAN CORPUSCULAR HEMOGLOBIN 31.1 pg (27.0-33.0); MEAN CORPUSCULAR HGB CONC 32.5 g/dl (32.0-36.5); MEAN CORPUSCULAR VOLUME 95.7 fl (80.0-96.0); PLATELET COUNT, AUTOMATED 123 10^3/uL (150-450); RED BLOOD COUNT 3.22 10^6/uL (4.30-6.10)
[2022-09-14 05:04] LABS: ALBUMIN 1.8 GM/DL (3.2-5.2); BILIRUBIN,TOTAL 0.5 MG/DL (0.2-1.0); CALCIUM LEVEL 7.5 MG/DL (8.8-10.2); CREATININE FOR GFR 1.31 MG/DL (0.70-1.30); GLOMERULAR FILTRATION RATE 56.8 (>42); TOTAL PROTEIN 4.5 GM/DL (6.4-8.2)
[2022-09-14 05:54] LABS: ABG BASE EXCESS -0.2 (-2.0-2.0); ABG O2 SATURATION 88.9 % (95.0-99.0); ABG PARTIAL PRESSURE CO2 32.7 mmHg (35.0-45.0); ABG PARTIAL PRESSURE O2 55.8 mmHg (75.0-100.0); ABG STANDARD HCO3 24.1 MEQ/L (22.0-26.0); ABG pH (ARTERIAL) 7.465 UNITS (7.350-7.450)
[2022-09-14] MEDS ORDERED: LIDOCAINE 2% MDV 20ML VIAL As Ordered ONE (06:16)
[2022-09-14 07:20] LABS: ABG BASE EXCESS 1.6 (-2.0-2.0); ABG HCO3 25.2 MEQ/L (22.0-26.0); ABG O2 SATURATION 90.3 % (95.0-99.0); ABG PARTIAL PRESSURE CO2 35.9 mmHg (35.0-45.0); ABG STANDARD HCO3 25.8 MEQ/L (22.0-26.0); ABG TOTAL CO2 26.3 MEQ/L (23.0-31.0); ABG pH (ARTERIAL) 7.464 UNITS (7.350-7.450)
[2022-09-14] MEDS: BUDESONIDE 0.5 MG/2 ML INHALATION SUSPENSION INH SCH ×2 (07:46→19:13)
[2022-09-14] MEDS: LEVALBUTEROL 1.25 MG/0.5 ML CONCENTRATE NEB INH SCH ×4 (07:46→19:13)
[2022-09-14] MEDS ORDERED: ROCURONIUM BROMIDE 50 MG/5 ML VIAL IV SCH (08:46)
[2022-09-14] MEDS ORDERED: propofoL 200 MG/20 ML VIAL IV PRN (08:46)
[2022-09-14] MEDS: NOREPINEPHRINE 4MG IN D5 250ML 4 MG in IV 1 EA IV SCH ×6 (08:54→22:17)
[2022-09-14] MEDS ORDERED: CISATRACURIUM 10MG/ML 20 ML VIAL As Ordered ONE (08:58)
[2022-09-14] MEDS ORDERED: PROPOFOL 1,000 MG/100 ML VIAL As Ordered ONE (08:58)
[2022-09-14] MEDS ORDERED: SENOKOT S TAB NG SCH (09:00)
[2022-09-14] MEDS ORDERED: fentaNYL 100 MCG/2 ML INJECTION IV STA (09:21)
[2022-09-14] MEDS: fentaNYL CITRATE/NaCl 1,000 MCG in IV 1 EA IV SCH (09:49)
[2022-09-14] MEDS: propofoL 1,000 MG in IV 1 EA IV SCH ×2 (10:00→20:32)
[2022-09-14] MEDS: CISATRACURIUM 200 MG in NS 480 ML IV SCH (10:30)
[2022-09-14 11:39] LABS: HEMATOCRIT 38.4 % (42.0-52.0); MEAN CORPUSCULAR HEMOGLOBIN 31.5 pg (27.0-33.0); MEAN CORPUSCULAR HGB CONC 31.3 g/dl (32.0-36.5); MEAN CORPUSCULAR VOLUME 100.8 fl (80.0-96.0); PLATELET COUNT, AUTOMATED 192 10^3/uL (150-450); RED BLOOD COUNT 3.81 10^6/uL (4.30-6.10)
[2022-09-14 11:46] LABS: WHITE BLOOD COUNT 34.1 10^3/uL (4.0-10.0)
[2022-09-14 12:01] LABS: ABG HCO3 31.6 MEQ/L (22.0-26.0); ABG PARTIAL PRESSURE O2 88.2 mmHg (75.0-100.0); ABG TOTAL CO2 36.1 MEQ/L (23.0-31.0)
[2022-09-14 12:04] LABS: ABG pH (ARTERIAL) 6.951 UNITS (7.350-7.450)
[2022-09-14 12:05] LABS: ABG PARTIAL PRESSURE CO2 146.7 mmHg (35.0-45.0)
[2022-09-14 12:25] LABS: ALBUMIN 2.1 GM/DL (3.2-5.2); BILIRUBIN,TOTAL 0.9 MG/DL (0.2-1.0); CALCIUM LEVEL 7.9 MG/DL (8.8-10.2); CREATININE FOR GFR 1.42 MG/DL (0.70-1.30); GLOMERULAR FILTRATION RATE 51.7 (>42); TOTAL PROTEIN 5.4 GM/DL (6.4-8.2)
[2022-09-14 13:24] LABS: ABG BASE EXCESS -4.6 (-2.0-2.0); ABG HCO3 29.6 MEQ/L (22.0-26.0); ABG O2 SATURATION 89.8 % (95.0-99.0); ABG PARTIAL PRESSURE CO2 124.1 mmHg (35.0-45.0); ABG PARTIAL PRESSURE O2 86.5 mmHg (75.0-100.0); ABG STANDARD HCO3 20.5 MEQ/L (22.0-26.0); ABG TOTAL CO2 33.4 MEQ/L (23.0-31.0); ABG pH (ARTERIAL) 6.995 UNITS (7.350-7.450)
[2022-09-14 13:36] LABS: BILIRUBIN,TOTAL 0.4 MG/DL (0.2-1.0); CALCIUM LEVEL 7.8 MG/DL (8.8-10.2); CREATININE FOR GFR 1.74 MG/DL (0.70-1.30); GLOMERULAR FILTRATION RATE 40.9 (>42); MAGNESIUM LEVEL 3.3 MG/DL (1.8-2.4); POTASSIUM SERUM 5.7 MEQ/L (3.5-5.1); TOTAL PROTEIN 5.3 GM/DL (6.4-8.2)
[2022-09-14] MEDS: PANTOPRAZOLE 40MG VIAL IV SCH (13:43)
[2022-09-14] MEDS: FEXOFENADINE 60MG TAB NG SCH (13:44)
[2022-09-14] MEDS: MULTIVITAMIN/MINERALS LIQUID 15ML ORAL SYRINGE NG SCH (13:46)
[2022-09-14] MEDS: INSULIN LISPRO (NovoLOG) PER UNIT SC SCH ×3 (13:46→23:47)
[2022-09-14] MEDS: BACTRIM SUSP 160MG/800MG PER 20ML ORAL SYRINGE NG SCH ×2 (13:47→20:32)
[2022-09-14] MEDS: ASPIRIN 81 MG CHEW TABLET PEG SCH (13:49)
[2022-09-14] MEDS ORDERED: SUCCINYLCHOLINE 100 MG/5 ML SYRINGE (J0330) ONE (14:12)
[2022-09-14] MEDS ORDERED: propofoL 200 MG/20 ML VIAL ONE (14:12)
[2022-09-14] MEDS ORDERED: ROCURONIUM BROMIDE 50 MG/5 ML VIAL ONE (14:12)
[2022-09-14 14:39] LABS: ABG BASE EXCESS -6.2 (-2.0-2.0); ABG HCO3 24.5 MEQ/L (22.0-26.0); ABG O2 SATURATION 89.8 % (95.0-99.0); ABG PARTIAL PRESSURE O2 75.8 mmHg (75.0-100.0); ABG STANDARD HCO3 19.3 MEQ/L (22.0-26.0); ABG TOTAL CO2 26.9 MEQ/L (23.0-31.0)
[2022-09-14 14:40] LABS: ABG PARTIAL PRESSURE CO2 77.6 mmHg (35.0-45.0); ABG pH (ARTERIAL) 7.117 UNITS (7.350-7.450)
[2022-09-14] MEDS: ATORVASTATIN 20 MG TAB NG SCH (17:46)
[2022-09-14] MEDS ORDERED: LR 1,000 ML IV ONE (19:00)
[2022-09-14] MEDS: SENNA SYRUP 15 ML UDC PEG SCH (20:32)
[2022-09-14] MEDS ORDERED: LR 1,000 ML IV SCH (22:30)
[2022-09-15] VITALS (59 sets, daily range): BP systolic 85–112; BP diastolic 50–57; O2SAT 93
[2022-09-15] MEDS: methylPREDNISolone 125MG 2ML VIAL IV SCH ×4 (01:41→20:35)
[2022-09-15] MEDS: CISATRACURIUM 200 MG in NS 480 ML IV SCH ×3 (02:03→18:39)
[2022-09-15] MEDS: fentaNYL CITRATE/NaCl 1,000 MCG in IV 1 EA IV SCH ×2 (02:03→21:43)
[2022-09-15] MEDS ORDERED: LORazepam 2 MG/ML VIAL IV STA ×2 (03:39→03:49)
[2022-09-15 03:56] LABS: BASO # 0.1 10^3/uL (0.0-0.2); BASO % 0.2 % (0.0-1.0); HEMATOCRIT 31.4 % (42.0-52.0); LYMPH # 0.1 10^3/uL (1.5-5.0); LYMPH % 0.3 % (24.0-44.0); MEAN CORPUSCULAR HEMOGLOBIN 31.2 pg (27.0-33.0); MEAN CORPUSCULAR HGB CONC 31.2 g/dl (32.0-36.5); MONO # 0.8 10^3/uL (0.0-0.8); NEUTROPHILS # 36.8 10^3/uL (1.5-8.5); PLATELET COUNT, AUTOMATED 132 10^3/uL (150-450); RED BLOOD COUNT 3.14 10^6/uL (4.30-6.10)
[2022-09-15 03:59] LABS: WHITE BLOOD COUNT 38.4 10^3/uL (4.0-10.0)
[2022-09-15 04:00] LABS: HEMOGLOBIN 9.8 g/dl (13.5-17.5)
[2022-09-15 04:06] LABS: ABG BASE EXCESS -4.1 (-2.0-2.0); ABG O2 SATURATION 97.5 % (95.0-99.0); ABG STANDARD HCO3 21.1 MEQ/L (22.0-26.0)
[2022-09-15 04:08] LABS: ABG HCO3 25.1 MEQ/L (22.0-26.0); ABG PARTIAL PRESSURE O2 113.5 mmHg (75.0-100.0); ABG TOTAL CO2 27.2 MEQ/L (23.0-31.0); ABG pH (ARTERIAL) 7.179 UNITS (7.350-7.450)
[2022-09-15 04:26] LABS: CALCIUM LEVEL 6.8 MG/DL (8.8-10.2)
[2022-09-15 04:53] LABS: ALBUMIN 1.6 GM/DL (3.2-5.2); BILIRUBIN,TOTAL 0.5 MG/DL (0.2-1.0); CREATININE FOR GFR 2.51 MG/DL (0.70-1.30); GLOMERULAR FILTRATION RATE 26.8 (>42); POTASSIUM SERUM 5.9 MEQ/L (3.5-5.1); TOTAL PROTEIN 4.8 GM/DL (6.4-8.2)
[2022-09-15] MEDS: NOREPINEPHRINE 4MG IN D5 250ML 4 MG in IV 1 EA IV SCH ×6 (05:29→18:05)
[2022-09-15] MEDS: INSULIN LISPRO (NovoLOG) PER UNIT SC SCH ×3 (05:30→18:10)
[2022-09-15] MEDS: BUDESONIDE 0.5 MG/2 ML INHALATION SUSPENSION INH SCH ×2 (07:13→19:11)
[2022-09-15] MEDS: LEVALBUTEROL 1.25 MG/0.5 ML CONCENTRATE NEB INH SCH ×4 (07:13→19:12)
[2022-09-15] MEDS: dexmedeTOMidine 200 MCG in IV 1 EA IV SCH ×7 (07:50→21:44)
[2022-09-15] MEDS: MULTIVITAMIN/MINERALS LIQUID 15ML ORAL SYRINGE NG SCH (08:10)
[2022-09-15] MEDS: FEXOFENADINE 60MG TAB NG SCH (08:10)
[2022-09-15] MEDS: SENNA SYRUP 15 ML UDC PEG SCH ×2 (08:10→20:35)
[2022-09-15] MEDS: PANTOPRAZOLE 40MG VIAL IV SCH (08:10)
[2022-09-15] MEDS: ASPIRIN 81 MG CHEW TABLET PEG SCH (08:10)
[2022-09-15] MEDS ORDERED: NS 1,000 ML IV ONE (08:15)
[2022-09-15] MEDS ORDERED: MEROPENEM INJ 1 GM in IV 1 EA IV SCH (08:35)
[2022-09-15] MEDS: propofoL 1,000 MG in IV 1 EA IV SCH ×3 (08:45→22:16)
[2022-09-15] MEDS: MEROPENEM INJ 500 MG in IV 1 EA IV SCH ×2 (09:45→20:35)
[2022-09-15] MEDS ORDERED: PATIROMER SORBITEX CALCIUM 8.4 GM POWDER PACKET (VELTASSA) PO ONE (10:00)
[2022-09-15] MEDS ORDERED: FUROSEMIDE 100MG/10ML VIAL (J1940) IV ONE (13:35)
[2022-09-15 14:08] LABS: ASPERGILLUS FUMIGATUS AB Negative (Negative); AUREOBASIDIUM PULLULANS Negative (Negative); MICROPOLYSPORA FAENI AB Negative (Negative); PIGEON SERUM AB Negative (Negative); THERMOACTINOMYCES SACCHARI Negative (Negative); THERMOACTINOMYCES VULGARIS Negative (Negative)
[2022-09-15] MEDS: ATORVASTATIN 20 MG TAB NG SCH (18:09)
[2022-09-15] MEDS: DOXYCYCLINE HYCLATE 100 MG in D5W MINI-BAG PLUS 100 ML IV SCH (18:10)
[2022-09-16] VITALS (18 sets, daily range): BP systolic 94–102; BP diastolic 50–55
[2022-09-16] MEDS: NOREPINEPHRINE 4MG IN D5 250ML 4 MG in IV 1 EA IV SCH ×6 (00:45→13:09)
[2022-09-16] MEDS: methylPREDNISolone 125MG 2ML VIAL IV SCH ×3 (01:44→14:00)
[2022-09-16] MEDS: dexmedeTOMidine 200 MCG in IV 1 EA IV SCH ×10 (01:46→13:51)
[2022-09-16] MEDS: propofoL 1,000 MG in IV 1 EA IV SCH ×2 (04:21→11:02)
[2022-09-16 04:47] LABS: BASO % 0.1 % (0.0-1.0); HEMATOCRIT 27.7 % (42.0-52.0); HEMOGLOBIN 8.6 g/dl (13.5-17.5); LYMPH # 0.1 10^3/uL (1.5-5.0); LYMPH % 0.5 % (24.0-44.0); MONO # 0.4 10^3/uL (0.0-0.8); MONO % 1.6 % (2.0-8.0); NEUTROPHILS # 20.9 10^3/uL (1.5-8.5); NEUTROPHILS % 95.9 % (36.0-66.0); RED BLOOD COUNT 2.77 10^6/uL (4.30-6.10); WHITE BLOOD COUNT 21.8 10^3/uL (4.0-10.0)
[2022-09-16 05:08] LABS: PLATELET COUNT, AUTOMATED 62 10^3/uL (150-450)
[2022-09-16 05:15] LABS: ABG HCO3 22.6 MEQ/L (22.0-26.0); ABG O2 SATURATION 97.6 % (95.0-99.0); ABG PARTIAL PRESSURE O2 110.6 mmHg (75.0-100.0); ABG STANDARD HCO3 19.5 MEQ/L (22.0-26.0); ABG TOTAL CO2 24.4 MEQ/L (23.0-31.0)
[2022-09-16 05:20] LABS: ABG pH (ARTERIAL) 7.185 UNITS (7.350-7.450)
[2022-09-16 05:21] LABS: ABG PARTIAL PRESSURE CO2 61.1 mmHg (35.0-45.0)
[2022-09-16 05:37] LABS: ALBUMIN 1.8 GM/DL (3.2-5.2); BILIRUBIN,TOTAL 0.5 MG/DL (0.2-1.0); C REACTIVE PROTEIN QUANTITATIV 2.54 MG/DL (0.00-0.30); CALCIUM LEVEL 6.6 MG/DL (8.8-10.2); CREATININE FOR GFR 3.94 MG/DL (0.70-1.30); GLOMERULAR FILTRATION RATE 15.9 (>42); POTASSIUM SERUM 6.6 MEQ/L (3.5-5.1); TOTAL PROTEIN 4.2 GM/DL (6.4-8.2)
[2022-09-16] MEDS ORDERED: HumuLIN R (REGULAR) INSULIN (NovoLIN R) **100U/ML** PER UNIT IV STA ×2 (05:41→12:22)
[2022-09-16] MEDS ORDERED: DEXTROSE 50% 50 ML SYRINGE IV STA ×2 (05:41→12:28)
[2022-09-16] MEDS: INSULIN LISPRO (NovoLOG) PER UNIT SC SCH ×3 (05:57→11:38)
[2022-09-16] MEDS: DOXYCYCLINE HYCLATE 100 MG in D5W MINI-BAG PLUS 100 ML IV SCH (05:57)
[2022-09-16] MEDS ORDERED: SOD POLYSTYRENE SULFONATE SUSP 15GM 60ML UD PO ONE (06:00)
[2022-09-16] MEDS ORDERED: CALCIUM GLUCONATE 1,000MG/10ML VIAL (100MG/ML) (J0610) As Ordered ONE (06:01)
[2022-09-16] MEDS ORDERED: CALCIUM GLUCONATE 1,000 MG in D5W MINI-BAG PLUS 100 ML IV ONE (06:15)
[2022-09-16] MEDS: LEVALBUTEROL 1.25 MG/0.5 ML CONCENTRATE NEB INH SCH ×2 (07:40→11:27)
[2022-09-16] MEDS: BUDESONIDE 0.5 MG/2 ML INHALATION SUSPENSION INH SCH (07:40)
[2022-09-16] MEDS: PANTOPRAZOLE 40MG VIAL IV SCH (08:30)
[2022-09-16] MEDS: MULTIVITAMIN/MINERALS LIQUID 15ML ORAL SYRINGE NG SCH (08:30)
[2022-09-16] MEDS: FEXOFENADINE 60MG TAB NG SCH (08:30)
[2022-09-16] MEDS: SENNA SYRUP 15 ML UDC PEG SCH (08:30)
[2022-09-16] MEDS: ASPIRIN 81 MG CHEW TABLET PEG SCH (08:30)
[2022-09-16] MEDS: MEROPENEM INJ 500 MG in IV 1 EA IV SCH (08:31)
[2022-09-16] MEDS ORDERED: VORICONAZOLE 200 MG NG SCH (09:00)
[2022-09-16] MEDS ORDERED: FUROSEMIDE 100MG/10ML VIAL (J1940) IV ONE (10:00)
[2022-09-16] MEDS: CISATRACURIUM 200 MG in NS 480 ML IV SCH (11:01)
[2022-09-16] MEDS ORDERED: PATIROMER SORBITEX CALCIUM 8.4 GM POWDER PACKET (VELTASSA) PO SCH (12:00)
[2022-09-16] MEDS ORDERED: ALBUTEROL SULFATE 2.5 MG/0.5 ML INH NEB SOLN NEB ONE (12:25)
[2022-09-16] MEDS ORDERED: CALCIUM CHLORIDE 10% 1 GM in D5W 100 ML IV ONE (13:00)
[2022-09-16] MEDS: fentaNYL CITRATE/NaCl 1,000 MCG in IV 1 EA IV SCH (13:52)
[2022-09-16] MEDS ORDERED: LORazepam 2 MG/ML VIAL IV PRN (15:05)
[2022-09-16] MEDS: LORazepam 2 MG/ML VIAL IV PRN (15:07)
[2022-09-16] MEDS ORDERED: GLYCOPYRROLATE INJ 0.2 MG/ML 2 ML VIAL NEB SCH (20:00)
[2022-09-19 15:08] LABS: CRYPTOCOCCUS ANTIBODY SERUM Negative (Neg:<1:2); CRYPTOCOCCUS ANTIGEN SER Negative (Negative)
== END 2022-09-16 15:32 | disposition expired | DRG 208 ==
LOC: M ED 10:39 → M ED INP 14:01 → ENRESERV 17:13 → M PCU 20:15 → M ICU 09-02 08:20
PROVIDERS: ADMIT General Practice; ATTEND General Practice
PROC: 30233J1 Transfusion of Nonautologous Serum Albumin into Peripheral Vein, Percutaneous Approach (ICD-10-PCS; 2022-08-29)
PROC: 5A1945Z Respiratory Ventilation, 24-96 Consecutive Hours (ICD-10-PCS; principal; 2022-09-14)
PROC: 0W9930Z Drainage of Right Pleural Cavity with Drainage Device, Percutaneous Approach (ICD-10-PCS; 2022-09-14)
PROC: 02HV33Z Insertion of Infusion Device into Superior Vena Cava, Percutaneous Approach (ICD-10-PCS; 2022-09-14)
PROC: 0BH17EZ Insertion of Endotracheal Airway into Trachea, Via Natural or Artificial Opening (ICD-10-PCS; 2022-09-14)
DX: J84.114 Acute interstitial pneumonitis (principal); J18.9 Pneumonia, unspecified organism; K72.00 Acute and subacute hepatic failure without coma; J96.21 Acute and chronic respiratory failure with hypoxia; J96.22 Acute and chronic respiratory failure with hypercapnia; E87.20 Acidosis, unspecified; Q64.33 Congenital stricture of urinary meatus; N17.9 Acute kidney failure, unspecified; J93.83 Other pneumothorax; J44.0 Chronic obstructive pulmonary disease with (acute) lower respiratory infection; I13.0 Hypertensive heart and chronic kidney disease with heart failure and stage 1 through stage 4 chronic kidney disease, or unspecified chronic kidney disease; E87.29 Other acidosis; E87.5 Hyperkalemia; I48.91 Unspecified atrial fibrillation; R94.31 Abnormal electrocardiogram [ECG] [EKG]; T46.2X5A Adverse effect of other antidysrhythmic drugs, initial encounter; Z66 Do not resuscitate; N18.30 Chronic kidney disease, stage 3 unspecified; E78.00 Pure hypercholesterolemia, unspecified; I25.10 Atherosclerotic heart disease of native coronary artery without angina pectoris; N40.0 Benign prostatic hyperplasia without lower urinary tract symptoms; G89.29 Other chronic pain; M54.9 Dorsalgia, unspecified; Z79.01 Long term (current) use of anticoagulants; Z79.82 Long term (current) use of aspirin; Z79.899 Other long term (current) drug therapy; Z95.1 Presence of aortocoronary bypass graft; Z88.5 Allergy status to narcotic agent; Z87.891 Personal history of nicotine dependence